=== PATIENT | female | born 1935 | race Caucasian/White ===

== ENCOUNTER 2018-06-21 11:10 | Outpatient (CLI) | payer MEDICARE ==
--- NOTE | 2018-06-21 13:29 | RAD ---
LUMBAR SPINE 3 VIEWS: Date: 06/21/18 HISTORY: Lumbago. Back pain. FINDINGS: There are degenerative changes in the lumbar spine. No fracture, subluxation, or bony destruction is identified. IMPRESSION: Lumbar spondylosis. POS: [facility]
== END 2018-06-21 11:11 | disposition home or self-care (01) ==
LOC: BICRAD 11:10
PROVIDERS: ATTEND Anesthesiology
DX: M54.5 Low back pain (principal); M47.816 Spondylosis without myelopathy or radiculopathy, lumbar region
CPT/HCPCS: 72100

== ENCOUNTER 2018-10-17 10:59 | Outpatient (CLI) | payer MEDICARE ==
--- NOTE | 2018-10-17 11:56 | RAD ---
LEFT KNEE 4 VIEWS: Date: 10/17/18 HISTORY: Knee pain. FINDINGS: Joint spaces are preserved. There are mild degenerative changes with spurring from the tibial spines and patella. No fracture or acute abnormality identified. No significant joint effusion. IMPRESSION: No acute findings. POS: [facility]
== END 2018-10-17 11:00 | disposition home or self-care (01) ==
LOC: SCSRAD 10:59
DX: M25.562 Pain in left knee (principal)

== ENCOUNTER 2018-12-26 10:35 | Observation (INO) | payer MEDICARE ==
--- NOTE | 2018-12-26 10:53 | CT ---
CT Brain WO Con History: Seeing spots. Comparison: None. 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 No acute hemorrhage or infarct. No midli ne shift or mass effect. Jugular size and extra-axial CSF spaces are normal for age. Globes are intact. No retrobulbar hematoma. Calvarium is intact. Paranasal sinuses and mastoids are clear. Impression: Old right cerebellar infarction. No acute intracranial abnormality.
[2018-12-26 11:08] LABS: #Basophils 0.1 thou/uL (0.0-0.2); #Eosinphils 0.1 thou/uL (0.0-0.7); #Lymphocytes 1.4 thou/uL (1.20-3.40); #Monocytes 0.4 thou/uL (0.11-0.59); #Neutrophils 4.3 thou/uL (1.40-6.50); %Eosinophils 1.4 % (0.0-10.0); %Lymphocytes 22.5 % (21.0-51.0); %Monocytes 5.9 % (0.0-10.0); %Neutrophils 69.2 % (42.0-75.0); Hemoglobin 14.4 g/dL (12.0-16.0); Mean Corpuscular HGB CONC 32.5 g/dL (32.0-36.0); Mean Corpuscular Hemoglobin 31.9 pg (27.0-31.0); Mean Platelet Volume 9.7 fL (7.4-10.4); Platelet Count 131 thou/uL (130-400); RBC Distribution Width 11.6 % (11.5-14.5); Red Blood Cell (RBC) Count 4.53 mill/uL (4.20-5.40); White Blood Cell (WBC) Count 6.3 thou/uL (4.8-10.8)
[2018-12-26 11:33] LABS: Bilirubin Negative (Negative); Blood, Urine Negative (Negative); Clarity Clear (Clear); Glucose, Urine (Dipstick) Normal (Negative); Leukocyte Negative Leu/uL (Negative); Nitrite Negative (Negative); Protein, Urine (Dipstick) Negative (Neg-Trace); Urobilinogen Normal mg/dL (Less than 2)
[2018-12-26 11:33] LABS: ALT (SGPT) 18 U/L (8-55); AST (SGOT) 31 U/L (5-34); Albumin 4.1 g/dL (3.4-4.8); Alkaline Phosphatase 79 U/L (40-150); Anion Gap 11 mmol/L (10-20); BUN (Urea Nitrogen) 26 mg/dL (9.8-20.1); Bilirubin, Total 0.5 mg/dL (0.2-1.2); Calc. Creatinine Clearance 0 mL/min (70-130); Calcium 10.6 mg/dL (7.8-10.44); Carbon Dioxide 31 mmol/L (23-31); Chloride 100 mmol/L (98-107); Estimated GFR-MDRD 38; Globulin 3.4 g/dL (2.4-3.5); Glucose 147 mg/dL (83-110); Protein, Total 7.5 g/dL (6.0-8.3); Sodium 138 mmol/L (136-145)
[2018-12-26] MEDS ORDERED: Aspirin Chewable 81 MG TAB ONE (12:43)
[2018-12-26] MEDS ORDERED: Acetaminophen 325 MG TAB PO PRN (14:51)
[2018-12-26] MEDS ORDERED: Dextrose 50% Abboject 50 ML SYRINGE SLOW IVP PRN (14:51)
[2018-12-26] MEDS ORDERED: Dextrose 5% in Water 1,000 ML IV PRN (14:51)
[2018-12-26] MEDS ORDERED: Ondansetron PF 4 MG/2 ML Vial IVP PRN (14:51)
[2018-12-26] MEDS ORDERED: HumaLOG 300 UNITS/3 ML VIAL SC PRN (14:51)
[2018-12-26] MEDS ORDERED: Ondansetron ODT 4 MG TAB PO PRN (14:51)
--- NOTE | 2018-12-26 15:33 | MRI ---
MRI OF BRAIN WITHOUT CONTRAST: 12/26/18 HISTORY: CVA, TIA. Blurred vision with spots which have resolved. FINDINGS: Correlation is made with the CT scan obtained earlier today. No restricted diffusion is seen. There is an old lacunar infarction in the right cerebellar hemispher e. No evidence of acute infarct, hemorrhage, midline shift, or abnormal extra-axial fluid collections are seen. There are changes of mild chronic ischemic small vessel ischemic disease in the periventri cular and subcortical white matter. IMPRESSION: No evidence of acute intracranial process. POS: [facility]
[2018-12-26 15:52] VITALS: BMI 37.7
--- NOTE | 2018-12-26 17:03 | ULT ---
US Carotid Doppler STANDARD History: TIA Comparison: None. Findings: Real-time grayscale and color and spectral analysis of the extracranial carotid and vertebr al arteries was performed. Moderate atherosclerotic plaque of both carotid bulbs. Antegrade flow both vertebral arteries. No noris vated peak systolic velocities within the internal carotid arteries. Impression: No hemodynamically significant stenosis.
[2018-12-26] MEDS ORDERED: HYDROcodone/Acetaminophen 7.5/325 mg Tablet PO PRN (19:02)
[2018-12-26] MEDS ORDERED: hydrALAZINE 20 MG/ML VIAL SLOW IVP PRN ×2 (19:04→22:00)
[2018-12-26] MEDS ORDERED: Famotidine 20 MG TAB PO SCH (21:00)
[2018-12-26] MEDS: Gabapentin 300 MG CAP PO SCH (21:14)
[2018-12-26] MEDS: Morphine ER 15 MG TAB PO SCH (21:14)
[2018-12-26] MEDS: Carbidopa/Levodopa 10-100 mg Tablet PO SCH (21:14)
[2018-12-26] MEDS: HumaLOG 300 UNITS/3 ML VIAL SC PRN (21:19)
--- NOTE | 2018-12-26 21:28 | HP ---
PRIMARY CARE PHYSICIAN: Dr. Winters. CHIEF COMPLAINT: Bilateral blurred vision and dizziness. HISTORY OF PRESENT ILLNESS: Ms. Goodwin is an 83-year-old female, with a past medical history of glaucoma, Parkinson disease, chronic back pain, gout, history of diabetes type 2, and hypertension, who had presented to [facility] earlier today with her family members after she experienced bilateral vision changes earlier this morning along with some dizziness that started around the same time. She states that she was seen at a local urgent care that had noticed a slight facial droop along with some right-sided weakness, which she states that her symptoms resolved after about an hour. She had denied any fever, chills, any headache, chest pain, palpitations, shortness of breath, abdominal pain, nausea, vomiting or any change in stool. She is currently not having any further visual changes or dizziness at this time. She was given a full dose aspirin in the ED, and her CT of her head revealed an old right cerebellar infarction and no acute intracranial abnormalities; however, the patient had denied knowing any history of stroke in the past. She sees Dr. Patricio for her Parkinson's and she had denied any further changes. REVIEW OF SYSTEMS: All other systems reviewed and found to be negative unless mentioned in the HPI. PAST MEDICAL HISTORY: Hypertension, glaucoma, Parkinson's, chronic back pain, gout, diabetes mellitus type 2. PAST SURGICAL HISTORY: A and P colporrhaphy with cystocele and rectocele, spinal fusion, facial biopsy, bladder biopsy, arm biopsy, cataract surgery, appendectomy, cholecystectomy, and tonsillectomy. PSYCHIATRIC HISTORY: None. SOCIAL HISTORY: The patient denies alcohol, tobacco, or illicit drug use. KNOWN ALLERGIES: Penicillins and sulfa. CURRENT HOME MEDICATIONS: Include. 1. Aspirin 10 mg oral daily. 2. Cinnamon 4 times daily. 3. Lasix 20 mg daily as needed for fluid retention. 4. Gabapentin 300 mg oral daily. 5. Lantus 56 units at bedtime. 6. NovoLog 12 units t.i.d. 7. NovoLog insulin sliding scale. 8. Timolol eyedrops. PHYSICAL EXAMINATION: VITAL SIGNS: BP 136/79, pulse 61, respiration 19, temp 98.7, O2 saturation 96% on room air. GENERAL: The patient is awake, alert, and oriented x3. She is currently lying comfortably in bed and in no acute distress. HEENT: Atraumatic, normocephalic. Pupils are round and reactive to light. Extraocular muscles intact. Moist mucous membranes noted. NECK: Soft, supple. Trachea midline. CARDIOVASCULAR: Positive S1 and S2. Regular rate and rhythm. No murmur auscultated. RESPIRATORY: Clear to auscultation bilaterally. No wheezes, rales, or rhonchi. ABDOMEN: Soft, nontender. Bowel sounds present. EXTREMITIES: Moves all extremities equal. Strength 5+ bilaterally upper and lower extremities. Pedal and radial pulses 2+ bilaterally. No calf tenderness. No edema noted. NEUROLOGIC: Cranial nerves 2 through 12 grossly intact. No focal deficits noted. Speech intact and normal. Gait not assessed. SKIN: Warm, dry, and intact. No ulceration. No bruising noted. PSYCHIATRIC: Good mood and affect. LABORATORY DATA: WBC 6.3, RBC 4.53, hemoglobin 14.4, hematocrit 44.4, platelet 131. Sodium 138, potassium 4.0, anion gap 11, BUN 26, creatinine 1.32, estimated GFR 38, glucose 147. Urinalysis unremarkable. DIAGNOSTIC IMAGING: CT of brain without contrast revealed an old right cerebellar infarction with no acute intracranial abnormality demonstrated. ASSESSMENT/PLAN: 1. Possible transient ischemic attack. We will obtain an MRI of the brain without contrast. Carotid Doppler and echocardiogram for further evaluation. We will also place consult for Dr. Patricio. The patient was given aspirin down in the ED and we will maintain this along with her home statin. 2. History of hypertension. Continue home regimen. 3. Diabetes mellitus type 2. Continue home regimen including Lantus 56 units at nighttime along with insulin sliding scale with frequent Accu-Cheks. 4. History of Parkinson's. Continue home regimen and as above we will place consult for Neurology, Dr. Patricio. 5. History of glaucoma. Continue home eye drops. 6. Deep venous thrombosis and gastrointestinal prophylaxis. 7. Code status, full code. 8. Surrogate decision maker is her daughter, Rosalee. DISPOSITION: Pending further workup and clinical findings. Job ID: [id number]
[2018-12-26] MEDS ORDERED: rOPINIRole HCl 0.25 MG TAB PO SCH (22:30)
[2018-12-27] MEDS: Levothyroxine Sodium 100 MCG TAB PO SCH (05:12)
[2018-12-27] MEDS: Morphine ER 15 MG TAB PO SCH ×3 (05:39→21:27)
[2018-12-27 06:32] LABS: #Eosinphils 0.1 thou/uL (0.0-0.7); #Lymphocytes 1.7 thou/uL (1.20-3.40); #Monocytes 0.5 thou/uL (0.11-0.59); #Neutrophils 3.6 thou/uL (1.40-6.50); %Basophils 0.6 % (0.0-1.0); %Eosinophils 2.3 % (0.0-10.0); %Monocytes 8.5 % (0.0-10.0); %Neutrophils 60.5 % (42.0-75.0); Hemoglobin 13.5 g/dL (12.0-16.0); Mean Corpuscular HGB CONC 33.2 g/dL (32.0-36.0); Mean Corpuscular Hemoglobin 32.5 pg (27.0-31.0); Mean Platelet Volume 9.8 fL (7.4-10.4); Platelet Count 116 thou/uL (130-400); RBC Distribution Width 11.6 % (11.5-14.5); Red Blood Cell (RBC) Count 4.16 mill/uL (4.20-5.40); White Blood Cell (WBC) Count 5.9 thou/uL (4.8-10.8)
[2018-12-27 06:46] LABS: Anion Gap 12 mmol/L (10-20); BUN (Urea Nitrogen) 31 mg/dL (9.8-20.1); Calc. Creatinine Clearance 51 mL/min (70-130); Calcium 9.5 mg/dL (7.8-10.44); Carbon Dioxide 25 mmol/L (23-31); Cardiac Risk 2.2 (Less than 4.5); Chloride 104 mmol/L (98-107); Cholesterol 100 mg/dl (< 200 Desired); Estimated GFR-MDRD 39; Glucose 140 mg/dL (83-110); HDL Cholesterol 46 mg/dL (>60 Neg Risk); LDL Cholesterol, Calculated 35 mg/dL; Potassium 3.8 mmol/L (3.5-5.1); Sodium 137 mmol/L (136-145); Triglycerides 96 mg/dL (Less than 150)
[2018-12-27] MEDS: Calcitriol 0.25 MCG CAP PO SCH (08:47)
[2018-12-27] MEDS: Losartan 25 MG TAB PO SCH (08:47)
[2018-12-27] MEDS: Carbidopa/Levodopa 10-100 mg Tablet PO SCH ×4 (08:47→21:27)
[2018-12-27] MEDS: Atorvastatin Calcium 10 MG TAB PO SCH (08:47)
[2018-12-27] MEDS: Febuxostat 40 MG TAB PO SCH (08:48)
[2018-12-27] MEDS ORDERED: rOPINIRole HCl 0.25 MG TAB PO SCH ×2 (09:00→21:00)
[2018-12-27] MEDS: Aspirin 325 MG TAB PO SCH (09:48)
[2018-12-27] MEDS: HumaLOG 300 UNITS/3 ML VIAL SC PRN ×2 (12:10→17:39)
[2018-12-27] MEDS ORDERED: Famotidine 20 MG TAB PO SCH (21:00)
[2018-12-27] MEDS: Gabapentin 300 MG CAP PO SCH (21:28)
--- NOTE | 2018-12-27 23:43 | CON ---
DATE OF CONSULTATION: 12/27/2018 HISTORY OF PRESENT ILLNESS: Ms. Goodwin is a patient of mine for management of Parkinson's. She has a distant history of migraine headaches. She had an episode where she had some central vision blurring, this lasted about 30 minutes. There was no associated headache, nausea, vomiting, vertigo, lateralized weakness, or numbness. She has never had anything like this in the past. She came in for evaluation. Her MRI of the brain showed an old right cerebellar infarct. The carotid ultrasound was clear. Cholesterol ratio is 2.2. Her vital signs have been stable. She has been afebrile. She has not had any further problems. Her echocardiogram is pending. PAST MEDICAL HISTORY: Parkinson's, diabetes, hypertension, low back pain, obesity. FAMILY HISTORY: Noncontributory. ALLERGIES: SULFA, PENICILLIN. PHYSICAL EXAMINATION: GENERAL: She is alert and appropriate. Her speech is fluent and clear. Her exam is nonfocal. She has a rest tremor involving the right hand and foot. Ms. Goodwin's episode is not typical of either occipital lobe or optic ischemia. I suspect that it could have been migraine aura. I have advised her to take a baby aspirin daily. I will follow up with her in the office. Job ID: [id number] MTDD
[2018-12-28 05:29] LABS: #Eosinphils 0.2 thou/uL (0.0-0.7); #Lymphocytes 1.7 thou/uL (1.20-3.40); #Monocytes 0.5 thou/uL (0.11-0.59); %Basophils 0.6 % (0.0-1.0); %Eosinophils 3.1 % (0.0-10.0); %Lymphocytes 25.9 % (21.0-51.0); %Neutrophils 62.4 % (42.0-75.0); Hemoglobin 13.8 g/dL (12.0-16.0); Mean Corpuscular HGB CONC 32.2 g/dL (32.0-36.0); Mean Corpuscular Hemoglobin 31.7 pg (27.0-31.0); Mean Corpuscular Volume 98.4 fL (78.0-98.0); Mean Platelet Volume 9.9 fL (7.4-10.4); Platelet Count 122 thou/uL (130-400); RBC Distribution Width 11.5 % (11.5-14.5); Red Blood Cell (RBC) Count 4.35 mill/uL (4.20-5.40); White Blood Cell (WBC) Count 6.5 thou/uL (4.8-10.8)
[2018-12-28 05:49] LABS: Anion Gap 13 mmol/L (10-20); BUN (Urea Nitrogen) 31 mg/dL (9.8-20.1); Calc. Creatinine Clearance 59 mL/min (70-130); Calcium 9.3 mg/dL (7.8-10.44); Carbon Dioxide 26 mmol/L (23-31); Chloride 103 mmol/L (98-107); Estimated GFR-MDRD 46; Glucose 161 mg/dL (83-110); Potassium 4.1 mmol/L (3.5-5.1); Sodium 138 mmol/L (136-145)
[2018-12-28] MEDS: Morphine ER 15 MG TAB PO SCH ×2 (06:28→14:06)
[2018-12-28] MEDS: Levothyroxine Sodium 100 MCG TAB PO SCH (06:29)
[2018-12-28] MEDS: Calcitriol 0.25 MCG CAP PO SCH (08:53)
[2018-12-28] MEDS: Atorvastatin Calcium 10 MG TAB PO SCH (08:53)
[2018-12-28] MEDS: Aspirin 325 MG TAB PO SCH (08:53)
[2018-12-28] MEDS: Losartan 25 MG TAB PO SCH (08:54)
[2018-12-28] MEDS: Febuxostat 40 MG TAB PO SCH (08:54)
[2018-12-28] MEDS: Carbidopa/Levodopa 10-100 mg Tablet PO SCH ×2 (08:54→14:06)
[2018-12-28] MEDS ORDERED: Aspirin 81 mg Enteric Coated Tablet PO SCH (10:45)
[2018-12-28] MEDS: HumaLOG 300 UNITS/3 ML VIAL SC PRN (11:39)
[2018-12-28 11:52] VITALS: BP 132/63; TEMP 97.9
--- NOTE | 2018-12-29 02:24 | DIS ---
DATE OF ADMISSION: 12/26/2018 DATE OF DISCHARGE: 12/28/2018 DISCHARGE DIAGNOSES: 1. Transient ischemic attack. 2. Hypertension. 3. Parkinson's, chronic back pain, gout, and diabetes. HOSPITAL COURSE: The patient is a very pleasant 83-year-old female, who initially presented to the hospital with complaints of bilateral blurry vision and dizziness. She initially had a CT brain, which indicated old cerebellar infarct. The patient was not aware of this. She was notified. She also had a brain MRI, which indicated no evidence of acute intracranial processes except for the right cerebellar hemispheric infarct. She did have carotid studies and echocardiogram. Her carotid Dopplers were normal and her EF was 55% to 60%, with just diastolic dysfunction and some mild mitral and aortic and tricuspid regurgitation. The patient denies any bilateral blurry vision. She is back to her baseline. She will be discharged home. She does not take home aspirin. I will start her on aspirin 81 mg daily. She has seen Neurology, who recommended aspirin. Continue the statin. HOME MEDICATIONS: 1. Aspirin 81 mg daily. 2. Morphine q.8 hours p.r.n. 3. Insulin Lantus units daily. 4. Atorvastatin 10 mg daily. 5. Levothyroxine 100 mcg daily. 6. Losartan 100 mg daily. 7. Gabapentin 300 mg at bedtime. 8. Lasix 20 mg daily. 9. Calcitriol 0.25 mcg p.o. daily. PHYSICAL EXAMINATION: VITAL SIGNS: Temperature 97.9, 69, 16, 94% on room air, and 132/63. GENERAL: She is awake, alert, and oriented x3. Does not appear in distress. CV: S1, S2 present. No murmurs, rubs, or gallops. ABDOMEN: Soft, nontender. Bowel sounds are present x2. EXTREMITIES: No edema. Again, she will be discharged home. She will follow up with her primary. Job ID: [id number]
[2018-12-29] MEDS ORDERED: Aspirin 81 mg Enteric Coated Tablet PO SCH (09:00)
[2018-12-29] MEDS ORDERED: Aspirin 325 MG TAB PO SCH (09:00)
--- NOTE | 2018-12-29 12:01 | EKG ---
Test Reason : Blood Pressure : / mmHG Vent. Rate : 068 BPM Atrial Rate : 068 BPM P-R Int : 000 ms QRS Dur : 082 ms QT Int : 380 ms P-R-T Axes : 000 -34 025 degrees QTc Int : 404 ms Normal sinus rhythm Left axis deviation Abnormal ECG Confirmed by MARA PRICE, TWILA ([id number]), loan expeditor MOSES GREENE ([id number]) on 12/29/2018 12:01:05 PM Referred By: Confirmed By:TWILA TERRY MD
== END 2018-12-28 14:47 | disposition home or self-care (01) ==
LOC: ERS 10:35 → ERHOLD 12:33 → 2SE 15:42
PROVIDERS: ADMIT Internal Medicine; ATTEND Internal Medicine
DX: G45.9 Transient cerebral ischemic attack, unspecified (principal); I10 Essential (primary) hypertension; G20 Parkinson's disease; G89.29 Other chronic pain; M10.9 Gout, unspecified; M06.9 Rheumatoid arthritis, unspecified; E11.9 Type 2 diabetes mellitus without complications; G43.909 Migraine, unspecified, not intractable, without status migrainosus; Z86.73 Personal history of transient ischemic attack (TIA), and cerebral infarction without residual deficits; Z79.4 Long term (current) use of insulin; Z79.891 Long term (current) use of opiate analgesic; Z79.899 Other long term (current) drug therapy; Z88.0 Allergy status to penicillin; Z88.2 Allergy status to sulfonamides
CPT/HCPCS: 70450; 70551; 80048 ×2; 80061; 81003; 82962 ×3; 85025 ×2; 93005; 93306; 93880; 97139 ×2; 99285; G0378 ×4; 36415; 36416; 80053; 84443

== ENCOUNTER 2019-04-05 06:43 | Outpatient (CLI) | payer MEDICARE ==
--- NOTE | 2019-04-05 07:44 | ULT ---
ULTRASOUND ABDOMEN COMPLETE: DATE: 04/05/2019 HISTORY: Left lower quadrant abdominal pain in 84-year-old female. FINDINGS: Liver:Normal echogenicity. Gallbladder:Surgically absent Common duct:10 mm. Spleen:No splenomegaly. Pancreas:Nonspecific sonographic appearance. Kidneys:No hydronephrosis. Abdominal aorta:No aneurysm. Inferior vena cava:Normal or visualized. IMPRESSION: 1. For left lower quadrant abdominal pain, CT of abdomen and pelvis with contrast is recommended. 2. Status post cholecystectomy. 3. Dilated common duct. This is presumably due to loss of reservoir effect due to status post cholecy stectomy.
--- NOTE | 2019-04-05 07:49 | ULT ---
Ultrasound pelvis: HISTORY: 84-year-old female with left lower quadrant abdominal/pelvic pain TECHNIQUE: Transabdominal transducer used to evaluate intrapelvic contents. Patient declined transvaginal ultras ound. FINDINGS: Cursory images of the urinary bladder demonstrate no gross abnormality. Uterus is absent surgically. Ovaries are not visualized. IMPRESSION: Featureless pelvis status post hysterectomy.
== END 2019-04-05 06:44 | disposition home or self-care (01) ==
LOC: BICULT 06:43
PROVIDERS: ATTEND Family Medicine
DX: R10.32 Left lower quadrant pain (principal); K83.8 Other specified diseases of biliary tract; Z90.710 Acquired absence of both cervix and uterus; Z90.49 Acquired absence of other specified parts of digestive tract
CPT/HCPCS: 36415; 76857; 80053; 80061; 83036; 84443; 85025; 93975

== ENCOUNTER 2019-09-05 08:29 | Day surgery (SDC) | payer MEDICARE ==
[2019-09-04 15:03] VITALS: BMI 38.4
[2019-09-05 09:02] LABS: PTT 34.3 sec (22.9-36.1); Prothrombin Time 12.9 sec (12.0-14.7)
[2019-09-05 09:04] LABS: #Basophils 0.1 thou/uL (0.0-0.2); #Eosinphils 0.3 thou/uL (0.0-0.7); #Lymphocytes 1.6 thou/uL (1.20-3.40); #Monocytes 0.4 thou/uL (0.11-0.59); #Neutrophils 4.6 thou/uL (1.40-6.50); %Basophils 0.8 % (0.0-1.0); %Eosinophils 4.1 % (0.0-10.0); %Monocytes 6.2 % (0.0-10.0); %Neutrophils 66.1 % (42.0-75.0); Hemoglobin 13.9 g/dL (12.0-16.0); Mean Corpuscular Hemoglobin 31.3 pg (27.0-31.0); Mean Platelet Volume 10.5 fL (7.4-10.4); Platelet Count 110 thou/uL (130-400); RBC Distribution Width 11.7 % (11.5-14.5); Red Blood Cell (RBC) Count 4.45 mill/uL (4.20-5.40); White Blood Cell (WBC) Count 6.9 thou/uL (4.8-10.8)
[2019-09-05] MEDS ORDERED: Midazolam HCl 2 mg/2 ml Vial ONE (10:38)
[2019-09-05] MEDS ORDERED: Fentanyl 100 MCG/2 ML VIAL ONE (10:38)
[2019-09-05] MEDS ORDERED: Sodium Bicarbonate 2.5 MEQ/5 ML VIAL ONE (10:38)
[2019-09-05 12:23] VITALS: BP 117/85; TEMP 97.4
--- NOTE | 2019-09-05 15:52 | CT ---
CT-guided suprapubic catheter placement Conscious sedation: At least 50 minutes spent with the patient for conscious sedation. HISTORY: Neurogenic bladder. FINDINGS: After explaining the procedure and answering all questions, limited CT imaging of the pelvi s was performed. Approximately 70 cc additional sterile saline was instilled into the bladder via the indwelling catheter. Additional fluid was unable to be administered due to hyperdense material se en to be impacted within the internal portions of the Robbins catheter. Sterile technique, buffered local anesthesia, CT guidance, conscious sedation, and an anterior suprap ubic approach were used to carefully advance a 12 Danish suprapubic catheter into the urinary bladder with trocar technique. Position was confirmed. Clear urine was drained. Catheter was secured with buffered local anesthesia and 0 silk suture and left draining to gravity. Patient tolerated procedure well and was returned to the holding area in good condition for further m onitoring. IMPRESSION : Technically successful CT-guided suprapubic catheter placement. 12 Danish catheter was placed due to the inability to well distend urinary bladder and the depth of t he bladder from the skin surface, so that initially placing a larger catheter was not felt to be safe. The previously indwelling Robbins catheter contained hyperdense debris that obstructed the lumen within fluid administration was attempted.
== END 2019-09-05 13:20 | disposition home or self-care (01) ==
LOC: SPEC 08:29
PROVIDERS: ATTEND Urology
PROC: 0T9B30Z Drainage of Bladder with Drainage Device, Percutaneous Approach (ICD-10-PCS; principal; 2019-09-05)
DX: N31.9 Neuromuscular dysfunction of bladder, unspecified (principal); R33.9 Retention of urine, unspecified; N39.41 Urge incontinence; I13.0 Hypertensive heart and chronic kidney disease with heart failure and stage 1 through stage 4 chronic kidney disease, or unspecified chronic kidney disease; E11.22 Type 2 diabetes mellitus with diabetic chronic kidney disease; N18.3 Chronic kidney disease, stage 3 (moderate); I50.9 Heart failure, unspecified; G25.81 Restless legs syndrome; G20 Parkinson's disease; M79.7 Fibromyalgia; E66.01 Morbid (severe) obesity due to excess calories; Z68.38 Body mass index [BMI] 38.0-38.9, adult; Z87.440 Personal history of urinary (tract) infections; Z79.4 Long term (current) use of insulin; Z79.82 Long term (current) use of aspirin; Z79.891 Long term (current) use of opiate analgesic; Z79.899 Other long term (current) drug therapy; Z88.0 Allergy status to penicillin; Z88.2 Allergy status to sulfonamides
CPT/HCPCS: 51102; 77002; 85025; 85610; 85730; C2627; 36415; J2250; J3010

== ENCOUNTER 2019-12-27 07:30 | Outpatient (CLI) | payer MEDICARE ==
--- NOTE | 2019-12-27 11:23 | MRI ---
MRI OF THE THORACIC SPINE WITHOUT CONTRAST: INDICATION: An 84-year-old female with chronic thoracic back pain. The patient has had no prior history of thora cic spinal surgery but does report a history of prior cervical spinal fusion. There is no history of trauma. TECHNIQUE: T2 weighted sagittals, T1 weighted sagittals, T2 STIR sagittal, axial T2 and T1 images were obtained of the thoracic spine without contrast. Here are no radiographic comparisons. Comparisons are made of the lumbar spine radiograph from a study dated June 21, 2018, from [facility]. A T2 weighted number of count series was obtained for thoracic spinal level numbering. FINDINGS: There is very mild rightward curvature of the thoracic spine centered at the T7-T8 vertebral level. There is a large T2 hyperintense, T1 hypointense lesion involving the left aspect of the T12 vertebra l body extending into the left pedicle of the T12 vertebra measuring 4.3 x 2.7 cm with internal verti leigha oriented trabeculation most consistent with a large bony hemangioma. There is a 1 x 1 cm oval T2 hyperintense, peripheral T1 hyperintense, centrally T1 hypointense lesion within the right postero lateral aspect of the T7 vertebral body with no surrounding cortical breakthrough or marrow edema. T he lesion does demonstrate slightly more pronounced fatty signal on the axial T1 weighted images jesse g its medial border on image 48 of series 10. There are additional areas of stippled low T1 and T2 s ignal intensity foci within the medial margin of the lesion. No acute fracture is evident. At T1-T2, there is no appreciable central canal or neural foraminal narrowing. There is mild facet j oint degenerative change. There is mild facet osteoarthrosis bilaterally. There is a small right perineural cyst in the neural foramina at T2-T3. There is no appreciable central canal or neural foraminal narrowing. At T3-T4, there is no appreciable central canal or neural foraminal narrowing. At T4-T5, there is a small left perineural cyst within the neural foramina, but no appreciable centra l canal or neural foraminal narrowing. At T5-T6, there is a right perineural cyst in the neural foramina, but no appreciable central canal o r neural foraminal narrowing. At T6-T7, there is no appreciable central canal or neural foraminal narrowing. At T7-T8, there is no appreciable central canal or neural foraminal narrowing. There is mild facet j oint degenerative change. At T8-T9, there is no appreciable central canal or neural foraminal narrowing. There is mild facet j oint degenerative change. At T9-T10, there is no appreciable central canal or neural foraminal narrowing. There is a mild size perineural cyst within the right neural foramina. There is facet hypertrophy bilaterally. At T10-T11, there is mild facet hypertrophy, but no appreciable central canal or neural foraminal filemon rowing. At T11-T12, there is no appreciable central or neural foraminal narrowing. At T12-L1, there is no appreciable central canal or neural foraminal narrowing. There are small marginal osteophytes affecting all major thoracic vertebral levels. There are minima l multilevel broad-based disk bulges that are most evident on the sagittal images. Visualized paravertebral and prevertebral soft tissues appear within normal limits. IMPRESSION: 1. Mild multilevel thoracic spondylosis without evidence of significant central canal or neural fora marisela narrowing. 2. The spinal cord demonstrated a normal caliber and signal intensity. 3. Prominent T12 bony hemangioma. Suspected slightly atypical hemangioma within the right posterola teral aspect of the T7 vertebral body. There are areas of peripheral internal fat signal intensity a long the margin of the lesion. There is no evidence of aggressive surrounding changes to the bone ne ar this lesion. If clinically indicated, a CT examination may be helpful to evaluate the internal ar chitecture of this lesion confirming it as a hemangioma. 4. No acute fracture demonstrated. POS: [facility]
== END 2019-12-27 07:31 | disposition home or self-care (01) ==
LOC: SCSMRI 07:30
DX: M54.6 Pain in thoracic spine (principal); M47.814 Spondylosis without myelopathy or radiculopathy, thoracic region; D18.09 Hemangioma of other sites
CPT/HCPCS: 72146

== ENCOUNTER 2020-03-17 07:35 | Outpatient (CLI) | payer MEDICARE ==
--- NOTE | 2020-03-17 09:53 | MRI ---
MRI LUMBAR SPINE WITHOUT CONTRAST: INDICATION: An 85-year-old female with a history of back pain. COMPARISON: Lumbar spinal radiographs dated 06/21/2018 from [facility] in [place]. FINDINGS: There is a benign hemangioma within T12. There is heterogeneous marrow signal intensity likely relat ed to patchy areas of red and yellow marrow which is within normal limits. Small T2 hyperintensity i s seen involving the superior pole of the left kidney likely reflecting a tiny cyst measuring approxi mately 6 mm. No lymphadenopathy or free fluid is evident. No acute fracture is evident. At L5-S1, there is mild facet joint degenerative change and a broad-based bulge, but no appreciable c entral canal or neural foraminal narrowing. At L4-5, there is a broad-based bulge with facet hypertrophy and some mild loss of disk space height inducing mild neural foraminal narrowing. At L3-4, there is a broad-based bulge with ligamentum flavum hypertrophy and facet hypertrophy induci ng mild central canal narrowing with mild bilateral neural foraminal narrowing. At L2-3, there is a broad-based bulge with facet hypertrophy inducing minimal to mild central canal narrowing and mild bilateral neural foraminal narrowing. At L1-2, there is a broad-based bulge with facet hypertrophy inducing minimal to mild central canal n arrowing without appreciable neural foraminal narrowing. T12-L1, there is no appreciable central canal or neural foraminal narrowing. IMPRESSION: 1. Mild lumbar spondylosis with mild central canal narrowing and mild bilateral neural foraminal filemon rowing at L3-4. 2. Minimal to mild central canal narrowing at L1-2 and L2-3. 3. Mild neural foraminal narrowing at L4-5. POS: [facility]
== END 2020-03-17 07:36 | disposition home or self-care (01) ==
LOC: TBSIIMAG 07:35
DX: M96.1 Postlaminectomy syndrome, not elsewhere classified (principal); M54.5 Low back pain; M47.816 Spondylosis without myelopathy or radiculopathy, lumbar region; M48.061 Spinal stenosis, lumbar region without neurogenic claudication
CPT/HCPCS: 72146; 72148

== ENCOUNTER 2020-05-01 11:18 | Outpatient (CLI) | payer MEDICARE ==
--- NOTE | 2020-05-01 12:06 | MMO ---
Bilateral MAMMO Bilat Screen [facility]DI+ASHTYN. CLINICAL HISTORY: Patient is 85 years old and is seen for screening. The patient has no family history of breast cancer. The patient has no personal history of cancer. The patient has a history of left Excisional Biopsy - benign. VIEWS: The views performed were: bilateral craniocaudal with tomosynthesis and bilateral mediolateral oblique with tomosynthesis. FILMS COMPARED: The present examination has been compared to prior imaging studies performed at [facility] on 04/04/2019, and at [facility] on 10/27/2011 and 01/03/2013. This study has been interpreted with the assistance of computer-aided detection. MAMMOGRAM FINDINGS: There are scattered fibroglandular densities. There are benign appearing calcifications seen in both breasts. There are no suspicious masses, suspicious calcifications, or new areas of architectural distortion. IMPRESSION: THERE IS NO MAMMOGRAPHIC EVIDENCE OF MALIGNANCY. A ROUTINE FOLLOW-UP MAMMOGRAM IN 1 YEAR IS RECOMMENDED. THE RESULTS OF THIS EXAM WERE SENT TO THE PATIENT. ACR BI-RADS Category 2 - Benign finding MAMMOGRAPHY NOTE: 1. A negative mammogram report should not delay a biopsy if a dominant of clinically suspicious mass is present. 2. Approximately 10% to 15% of breast cancers are not detected by mammography. 3. Adenosis and dense breasts may obscure an underlying neoplasm. Reported by: ULICES WALL MD Electonically Signed: [id number]
== END 2020-05-01 11:19 | disposition home or self-care (01) ==
LOC: BICMAMMO 11:18
PROVIDERS: ATTEND Family Medicine
DX: Z12.31 Encounter for screening mammogram for malignant neoplasm of breast (principal)
CPT/HCPCS: 77063; 77067

== ENCOUNTER 2020-06-26 13:05 | Outpatient (CLI) | payer MEDICARE | END 2020-06-26 13:06 | disposition home or self-care (01) | LOC: BICRAD 13:05 | PROVIDERS: ATTEND Family Medicine | DX: R06.02 Shortness of breath (principal); I10 Essential (primary) hypertension; Z79.4 Long term (current) use of insulin | CPT/HCPCS: 36415; 71046; 80053; 80061; 83036; 85025 ==

== ENCOUNTER 2020-08-14 10:24 | Outpatient (CLI) | payer MEDICARE | END 2020-08-14 10:25 | disposition home or self-care (01) | LOC: BICMRI 10:24 | PROVIDERS: ATTEND Family Medicine | DX: R41.3 Other amnesia (principal); G93.89 Other specified disorders of brain | CPT/HCPCS: 70551 ==

== ENCOUNTER 2020-11-23 10:01 | Outpatient (CLI) | payer MEDICARE ==
[~2020-11-23 10:01] MED LIST: Iopamidol 370 76% 100 ML VIAL ONE
== END 2020-11-23 10:02 | disposition home or self-care (01) ==
LOC: BICCT 10:01
PROVIDERS: ATTEND Family Medicine
DX: E27.40 Unspecified adrenocortical insufficiency (principal); E27.8 Other specified disorders of adrenal gland; K80.50 Calculus of bile duct without cholangitis or cholecystitis without obstruction; N32.89 Other specified disorders of bladder; N21.0 Calculus in bladder
CPT/HCPCS: 74178; Q9967

== ENCOUNTER 2020-12-15 09:16 | Inpatient (IN) | payer MEDICARE ==
[2020-12-15 09:53] LABS: Bilirubin Moderate (Negative); Blood, Urine Moderate (Negative); Glucose, Urine (Dipstick) 100 mg/dL (Negative); Ketone, Urine Trace mg/dL (Negative); Leukocyte Large (Negative); Nitrite Negative (Negative); Protein, Urine (Dipstick) > or equal to 300 mg/dL (Neg-Trace)
[2020-12-15 10:00] LABS: Clarity Clear (Clear); Specific Gravity, Urine 1.004 (1.002-1.036); pH, Urine 7.5 (5.0-9.0)
[2020-12-15 10:03] LABS: Bacteria/HPF 4+ HPF (None Seen); Triple Phosphate Crystal 1+ HPF (None Seen); WBC/HPF 21-50 HPF (0-3); Yeast-Budding 1+ HPF (None Seen)
[2020-12-15] MEDS ORDERED: Fentanyl 100 MCG/2 ML VIAL ONE ×3 (10:27→19:36)
[2020-12-15 11:11] LABS: #Lymphocytes 0.7 thou/uL (1.20-3.40); #Monocytes 0.1 thou/uL (0.11-0.59); #Neutrophils 12.8 thou/uL (1.40-6.50); %Eosinophils 0.1 % (0.0-10.0); %Lymphocytes 4.9 % (21.0-51.0); Hemoglobin 14.7 g/dL (12.0-16.0); Mean Corpuscular HGB CONC 32.6 g/dL (32.0-36.0); Mean Corpuscular Hemoglobin 33.1 pg (27.0-31.0); Mean Platelet Volume 10.7 fL (7.4-10.4); Platelet Count 103 thou/uL (130-400); Red Blood Cell (RBC) Count 4.44 mill/uL (4.20-5.40); White Blood Cell (WBC) Count 13.7 thou/uL (4.8-10.8)
[2020-12-15 11:39] LABS: AST (SGOT) 775 U/L (5-34); Albumin 3.5 g/dL (3.4-4.8); Alkaline Phosphatase 267 U/L (40-110); Anion Gap 18 mmol/L (10-20); BUN (Urea Nitrogen) 21 mg/dL (9.8-20.1); Bilirubin, Total 2.8 mg/dL (0.2-1.2); Calc. Creatinine Clearance 0 mL/min (70-130); Calcium 9.5 mg/dL (7.8-10.44); Carbon Dioxide 23 mmol/L (23-31); Chloride 103 mmol/L (98-107); Globulin 3.6 g/dL (2.4-3.5); Glucose 238 mg/dL (83-110); Potassium 3.9 mmol/L (3.5-5.1); Protein, Total 7.1 g/dL (5.8-8.1); Sodium 140 mmol/L (136-145)
[2020-12-15 11:47] LABS: CKMB 1.5 ng/mL (0-6.6)
[2020-12-15 12:27] LABS: ALT (SGPT) 667 U/L (8-55); Lipase 7 U/L (8-78)
[2020-12-15] MEDS ORDERED: cefTRIAXone\\ROCEPHIN 2 GM VIAL ONE (13:09)
[2020-12-15] MEDS ORDERED: VANCOMYCIN 2 GRAM/400 ML BAG 2 GM in Premix Bag 1 BAG IVPB SCH (13:15)
[2020-12-15] MEDS ORDERED: Famotidine/PF 20 mg/2ml Vial ONE (13:54)
[2020-12-15] MEDS ORDERED: Iothalamate Meglumine 60% 50 ML VIAL FS ONE (14:09)
[2020-12-15] MEDS ORDERED: Indomethacin 50 MG SUPP ONE (14:13)
[2020-12-15] MEDS ORDERED: SUGAMMADEX SODIUM 200 MG/2 ML VIAL ONE (14:19)
[2020-12-15 14:22] LABS: Lactic Acid 2.7 mmol/L (0.5-2.2)
[2020-12-15 15:00] LABS: SARS-CoV-2 NAA Rapid Test Not Detected (NotDetected)
[2020-12-15] MEDS ORDERED: Dextrose 5 % And 0.9 % NaCl 1,000 ML IV SCH (15:00)
[2020-12-15] MEDS ORDERED: Indomethacin 50 MG SUPP PR SCH (15:00)
[2020-12-15] MEDS ORDERED: Hydrocortisone Sod Succ/PF 100 mg/2 ml Vial IVP SCH (15:00)
[2020-12-15] MEDS ORDERED: Succinylcholine 200 MG/10 ml SYRINGE FS ONE (15:22)
[2020-12-15] MEDS ORDERED: Rocuronium Bromide 10 MG/ML (10ML VIAL) ONE (15:22)
[2020-12-15] MEDS ORDERED: PROPOFOL 200 MG/20 ML VIAL ONE (15:22)
[2020-12-15] MEDS ORDERED: PHENYLEPHRINE-NS 100 MCG/ML 10 ML SYRINGE ONE (15:22)
[2020-12-15] MEDS ORDERED: Ondansetron PF 4 MG/2 ML Vial ONE (15:22)
[2020-12-15] MEDS ORDERED: Lidocaine 2% PF 5 ML VIAL ONE (15:22)
[2020-12-15] MEDS ORDERED: Metoclopramide HCl 10 MG/2 ML VIAL ONE (15:22)
[2020-12-15] MEDS ORDERED: Iothalamate Meglumine 60% 30 ML VIAL FS ONE (17:18)
[2020-12-15] MEDS ORDERED: Ondansetron HCl/PF 4 MG/2 ML Vial IVP PRN (18:26)
[2020-12-15] MEDS ORDERED: hydrALAZINE 20 MG/ML VIAL ONE ×2 (19:20→22:21)
[2020-12-15] MEDS: hydrALAZINE 20 MG/ML VIAL SLOW IVP PRN ×2 (19:25→19:40)
[2020-12-15] MEDS ORDERED: Hydrocortisone Sod Succ/PF 100 mg/2 ml Vial ONE (19:55)
[2020-12-15] MEDS: Sodium Chloride 0.9% 1,000 ML IV SCH (20:06)
[2020-12-15] MEDS ORDERED: Dextrose 5% in Water 1,000 ML IV PRN (20:26)
[2020-12-15] MEDS ORDERED: Dextrose 50% Abboject 50 ML SYRINGE SLOW IVP PRN (20:26)
[2020-12-15] MEDS ORDERED: Losartan 25 MG TAB PO SCH (20:30)
[2020-12-15 22:03] LABS: Lactic Acid 2.9 mmol/L (0.5-2.2)
[2020-12-15] MEDS ORDERED: hydrALAZINE 20 MG/ML VIAL SLOW IVP PRN (22:56)
[2020-12-16] MEDS ORDERED: Ondansetron PF 4 MG/2 ML Vial IVP PRN (00:48)
[2020-12-16] MEDS ORDERED: Ondansetron ODT 4 MG TAB PO PRN (00:52)
[2020-12-16] MEDS: Morphine 4 MG/ML VIAL SLOW IVP PRN ×3 (01:01→20:36)
[2020-12-16] MEDS: Sodium Chloride 0.9% 1,000 ML IV SCH ×2 (01:07→09:22)
[2020-12-16 05:12] VITALS: BMI 34.0
[2020-12-16 05:33] LABS: #Lymphocytes 0.8 thou/uL (1.20-3.40); #Monocytes 0.3 thou/uL (0.11-0.59); #Neutrophils 11.7 thou/uL (1.40-6.50); %Lymphocytes 6.2 % (21.0-51.0); %Neutrophils 91.8 % (42.0-75.0); Hemoglobin 14.1 g/dL (12.0-16.0); Mean Corpuscular HGB CONC 32.4 g/dL (32.0-36.0); Mean Platelet Volume 10.4 fL (7.4-10.4); Platelet Count 106 thou/uL (130-400); RBC Distribution Width 12.1 % (11.5-14.5); Red Blood Cell (RBC) Count 4.27 mill/uL (4.20-5.40); White Blood Cell (WBC) Count 12.8 thou/uL (4.8-10.8)
[2020-12-16 05:54] LABS: ALT (SGPT) 477 U/L (8-55); AST (SGOT) 255 U/L (5-34); Albumin 3.1 g/dL (3.4-4.8); Alkaline Phosphatase 214 U/L (40-110); Anion Gap 12 mmol/L (10-20); BUN (Urea Nitrogen) 21 mg/dL (9.8-20.1); Bilirubin, Total 3.4 mg/dL (0.2-1.2); Calc. Creatinine Clearance 55 mL/min (70-130); Calcium 8.8 mg/dL (7.8-10.44); Carbon Dioxide 24 mmol/L (23-31); Chloride 106 mmol/L (98-107); Globulin 3.2 g/dL (2.4-3.5); Glucose 263 mg/dL (83-110); Lipase 216 U/L (8-78); Potassium 3.4 mmol/L (3.5-5.1); Protein, Total 6.3 g/dL (5.8-8.1); Sodium 139 mmol/L (136-145)
[2020-12-16] MEDS ORDERED: Potassium Chloride 20 MEQ TAB PO SCH (07:00)
[2020-12-16] MEDS ORDERED: Electrolyte Replacement Protocol 1 EACH FS SCH (07:00)
[2020-12-16 08:18] LABS: Lactic Acid 1.7 mmol/L (0.5-2.2)
[2020-12-16 08:23] LABS: Magnesium 1.3 mg/dL (1.6-2.6)
[2020-12-16] MEDS: Losartan 25 MG TAB PO SCH (09:15)
[2020-12-16] MEDS ORDERED: Magnesium Sulfate 4 GM in Sodium Chloride 0.9% 250 ML 250 ML IVPB SCH (09:15)
[2020-12-16] MEDS: Ursodiol 300 MG CAP PO SCH ×3 (09:16→18:15)
[2020-12-16] MEDS: Saccharomyces boulardii 250 MG CAP PO SCH (09:16)
[2020-12-16] MEDS: Famotidine/PF 20 mg/2ml Vial SLOW IVP SCH (09:16)
[2020-12-16] MEDS: HumaLOG 300 UNITS/3 ML VIAL SC PRN ×3 (12:44→22:39)
[2020-12-16] MEDS ORDERED: Furosemide 20 MG TAB PO PRN (16:08)
[2020-12-16] MEDS: rOPINIRole HCl 0.25 MG TAB PO SCH (18:15)
[2020-12-16] MEDS: Gabapentin 300 MG CAP PO SCH (20:34)
[2020-12-16] MEDS: Hydrocortisone 10 mg Tablet PO SCH (20:34)
[2020-12-16] MEDS: Carbidopa/Levodopa 25-100 mg Tablet PO SCH (20:34)
[2020-12-16] MEDS: Zonisamide 25 MG CAP PO SCH (21:31)
[2020-12-17] MEDS: Morphine 4 MG/ML VIAL SLOW IVP PRN ×4 (02:30→16:46)
[2020-12-17] MEDS: Sodium Chloride 0.9% 1,000 ML IV SCH ×2 (03:21→15:19)
[2020-12-17] MEDS: Levothyroxine Sodium 100 MCG TAB PO SCH (05:54)
[2020-12-17 06:25] LABS: #Lymphocytes 0.8 thou/uL (1.20-3.40); #Monocytes 0.5 thou/uL (0.11-0.59); #Neutrophils 7.8 thou/uL (1.40-6.50); %Eosinophils 0.3 % (0.0-10.0); %Lymphocytes 8.9 % (21.0-51.0); %Monocytes 4.9 % (0.0-10.0); %Neutrophils 85.8 % (42.0-75.0); Hemoglobin 13.2 g/dL (12.0-16.0); Mean Corpuscular HGB CONC 31.9 g/dL (32.0-36.0); Mean Corpuscular Hemoglobin 32.8 pg (27.0-31.0); Mean Platelet Volume 10.3 fL (7.4-10.4); Platelet Count 82 thou/uL (130-400); RBC Distribution Width 12.3 % (11.5-14.5); Red Blood Cell (RBC) Count 4.02 mill/uL (4.20-5.40)
[2020-12-17 06:48] LABS: ALT (SGPT) 113 U/L (8-55); AST (SGOT) 113 U/L (5-34); Albumin 2.9 g/dL (3.4-4.8); Alkaline Phosphatase 187 U/L (40-110); Anion Gap 10 mmol/L (10-20); BUN (Urea Nitrogen) 20 mg/dL (9.8-20.1); Bilirubin, Total 2.5 mg/dL (0.2-1.2); Calc. Creatinine Clearance 65 mL/min (70-130); Calcium 8.3 mg/dL (7.8-10.44); Carbon Dioxide 24 mmol/L (23-31); Chloride 109 mmol/L (98-107); Globulin 3.2 g/dL (2.4-3.5); Glucose 199 mg/dL (83-110); Potassium 3.7 mmol/L (3.5-5.1); Protein, Total 6.1 g/dL (5.8-8.1); Sodium 139 mmol/L (136-145)
[2020-12-17] MEDS: HumaLOG 300 UNITS/3 ML VIAL SC PRN ×4 (07:16→20:39)
[2020-12-17] MEDS: Gabapentin 300 MG CAP PO SCH ×2 (09:09→20:41)
[2020-12-17] MEDS: Carvedilol 3.125 MG TAB PO SCH ×2 (09:11→20:41)
[2020-12-17] MEDS: Carbidopa/Levodopa 25-100 mg Tablet PO SCH ×3 (09:11→20:42)
[2020-12-17] MEDS: Saccharomyces boulardii 250 MG CAP PO SCH (09:11)
[2020-12-17] MEDS: Ursodiol 300 MG CAP PO SCH ×3 (09:13→15:55)
[2020-12-17] MEDS: Losartan 25 MG TAB PO SCH (09:13)
[2020-12-17] MEDS: Aspirin 81 mg Enteric Coated Tablet PO SCH (09:14)
[2020-12-17] MEDS: Famotidine/PF 20 mg/2ml Vial SLOW IVP SCH (09:14)
[2020-12-17] MEDS: Zonisamide 25 MG CAP PO SCH ×2 (09:14→20:43)
[2020-12-17] MEDS: Allopurinol 100 MG TAB PO SCH (09:14)
[2020-12-17] MEDS: Hydrocortisone 10 mg Tablet PO SCH ×2 (09:14→20:42)
[2020-12-17] MEDS: Morphine ER 15 MG TAB PO SCH ×2 (15:55→20:41)
[2020-12-17] MEDS: hydrALAZINE 20 MG/ML VIAL SLOW IVP PRN (15:56)
[2020-12-17] MEDS: rOPINIRole HCl 0.25 MG TAB PO SCH (16:00)
[2020-12-17] MEDS ORDERED: Meropenem 1 GM in Sodium Chloride 0.9% 100 ML IVPB SCH (17:00)
[2020-12-17] MEDS ORDERED: MEROPENEM 1 GM/50 ML 1 GM in Premix Bag 1 BAG IVPB SCH (17:15)
[2020-12-17] MEDS: HYDROcodone/Acetaminophen 7.5/325 mg Tablet PO PRN (18:31)
[2020-12-17] MEDS: DorzolamidE/Timolol 2%/0.5% Ophth Soln 10 ml Bottle EA EYE SCH (20:39)
[2020-12-17] MEDS: Latanoprost 0.005% Ophth Soln 2.5 ml Bottle EA EYE SCH (20:39)
[2020-12-18] MEDS: HYDROcodone/Acetaminophen 7.5/325 mg Tablet PO PRN ×3 (01:14→23:47)
[2020-12-18] MEDS: Sodium Chloride 0.9% 1,000 ML IV SCH ×4 (01:14→23:47)
[2020-12-18] MEDS: MEROPENEM 1 GM/50 ML 1 GM in Premix Bag 1 BAG IVPB SCH ×3 (01:15→16:15)
[2020-12-18] MEDS: Morphine 4 MG/ML VIAL SLOW IVP PRN (03:54)
[2020-12-18] MEDS: Levothyroxine Sodium 100 MCG TAB PO SCH (05:26)
[2020-12-18] MEDS: hydrALAZINE 20 MG/ML VIAL SLOW IVP PRN (05:26)
[2020-12-18] MEDS: HumaLOG 300 UNITS/3 ML VIAL SC PRN ×4 (06:12→20:09)
[2020-12-18] MEDS: Ursodiol 300 MG CAP PO SCH ×3 (08:46→16:15)
[2020-12-18] MEDS: Morphine ER 15 MG TAB PO SCH ×3 (08:47→19:55)
[2020-12-18] MEDS: Saccharomyces boulardii 250 MG CAP PO SCH (08:50)
[2020-12-18] MEDS: Losartan 25 MG TAB PO SCH (08:50)
[2020-12-18] MEDS: Aspirin 81 mg Enteric Coated Tablet PO SCH (08:50)
[2020-12-18] MEDS: Gabapentin 300 MG CAP PO SCH ×2 (08:50→19:59)
[2020-12-18] MEDS: Carvedilol 3.125 MG TAB PO SCH ×2 (08:50→19:59)
[2020-12-18] MEDS: DorzolamidE/Timolol 2%/0.5% Ophth Soln 10 ml Bottle EA EYE SCH ×2 (08:50→19:56)
[2020-12-18] MEDS: Hydrocortisone 10 mg Tablet PO SCH ×2 (08:50→19:58)
[2020-12-18] MEDS: Allopurinol 100 MG TAB PO SCH (08:50)
[2020-12-18] MEDS: Carbidopa/Levodopa 25-100 mg Tablet PO SCH ×3 (08:50→19:59)
[2020-12-18] MEDS: Famotidine/PF 20 mg/2ml Vial SLOW IVP SCH (08:51)
[2020-12-18] MEDS: Zonisamide 25 MG CAP PO SCH ×2 (08:51→20:00)
[2020-12-18] MEDS: rOPINIRole HCl 0.25 MG TAB PO SCH (16:15)
[2020-12-18] MEDS: Latanoprost 0.005% Ophth Soln 2.5 ml Bottle EA EYE SCH (19:57)
[2020-12-19] MEDS: MEROPENEM 1 GM/50 ML 1 GM in Premix Bag 1 BAG IVPB SCH ×3 (00:22→16:15)
[2020-12-19] MEDS: HumaLOG 300 UNITS/3 ML VIAL SC PRN ×4 (05:36→20:49)
[2020-12-19] MEDS: Levothyroxine Sodium 100 MCG TAB PO SCH (05:36)
[2020-12-19] MEDS: Saccharomyces boulardii 250 MG CAP PO SCH (08:08)
[2020-12-19] MEDS: hydrALAZINE 20 MG/ML VIAL SLOW IVP PRN (08:08)
[2020-12-19] MEDS: Famotidine/PF 20 mg/2ml Vial SLOW IVP SCH (08:08)
[2020-12-19] MEDS: DorzolamidE/Timolol 2%/0.5% Ophth Soln 10 ml Bottle EA EYE SCH ×2 (08:08→19:49)
[2020-12-19] MEDS: Aspirin 81 mg Enteric Coated Tablet PO SCH (08:09)
[2020-12-19] MEDS: Carvedilol 3.125 MG TAB PO SCH ×2 (08:09→19:51)
[2020-12-19] MEDS: Hydrocortisone 10 mg Tablet PO SCH ×2 (08:09→19:51)
[2020-12-19] MEDS: Gabapentin 300 MG CAP PO SCH ×2 (08:09→19:51)
[2020-12-19] MEDS: Losartan 25 MG TAB PO SCH (08:09)
[2020-12-19] MEDS: Carbidopa/Levodopa 25-100 mg Tablet PO SCH ×3 (08:09→19:59)
[2020-12-19] MEDS: Allopurinol 100 MG TAB PO SCH (08:09)
[2020-12-19] MEDS: Ursodiol 300 MG CAP PO SCH ×3 (08:10→16:10)
[2020-12-19] MEDS: Zonisamide 25 MG CAP PO SCH ×2 (08:10→20:00)
[2020-12-19] MEDS: Morphine ER 15 MG TAB PO SCH ×3 (08:11→19:58)
[2020-12-19] MEDS ORDERED: Polyethylene Glycol 3350 17 GM Packet PO PRN (11:52)
[2020-12-19] MEDS: Nystatin Powder 15 GM BOT TOP PRN (16:08)
[2020-12-19] MEDS: Sodium Chloride 0.9% 1,000 ML IV SCH (16:10)
[2020-12-19] MEDS: rOPINIRole HCl 0.25 MG TAB PO SCH (16:10)
[2020-12-19] MEDS: Latanoprost 0.005% Ophth Soln 2.5 ml Bottle EA EYE SCH (19:50)
[2020-12-20] MEDS: HYDROcodone/Acetaminophen 7.5/325 mg Tablet PO PRN (00:32)
[2020-12-20] MEDS: MEROPENEM 1 GM/50 ML 1 GM in Premix Bag 1 BAG IVPB SCH ×3 (00:36→17:00)
[2020-12-20] MEDS: hydrALAZINE 20 MG/ML VIAL SLOW IVP PRN (01:06)
[2020-12-20] MEDS: Sodium Chloride 0.9% 1,000 ML IV SCH ×3 (01:59→18:14)
[2020-12-20] MEDS: HumaLOG 300 UNITS/3 ML VIAL SC PRN ×4 (06:00→22:29)
[2020-12-20] MEDS: Levothyroxine Sodium 100 MCG TAB PO SCH (06:00)
[2020-12-20 06:07] LABS: #Eosinphils 0.5 thou/uL (0.0-0.7); #Lymphocytes 1.1 thou/uL (1.20-3.40); #Monocytes 0.4 thou/uL (0.11-0.59); #Neutrophils 4.2 thou/uL (1.40-6.50); %Basophils 0.6 % (0.0-1.0); %Eosinophils 7.8 % (0.0-10.0); %Lymphocytes 17.9 % (21.0-51.0); %Monocytes 6.7 % (0.0-10.0); Hemoglobin 13.2 g/dL (12.0-16.0); Mean Corpuscular HGB CONC 32.4 g/dL (32.0-36.0); Mean Corpuscular Hemoglobin 33.4 pg (27.0-31.0); Mean Platelet Volume 11.3 fL (7.4-10.4); Platelet Count 102 thou/uL (130-400); RBC Distribution Width 12.6 % (11.5-14.5); Red Blood Cell (RBC) Count 3.95 mill/uL (4.20-5.40); White Blood Cell (WBC) Count 6.2 thou/uL (4.8-10.8)
[2020-12-20 06:11] LABS: Anion Gap 11 mmol/L (10-20); BUN (Urea Nitrogen) 24 mg/dL (9.8-20.1); Calc. Creatinine Clearance 69 mL/min (70-130); Calcium 7.9 mg/dL (7.8-10.44); Carbon Dioxide 23 mmol/L (23-31); Chloride 110 mmol/L (98-107); Glucose 225 mg/dL (83-110); Potassium 3.9 mmol/L (3.5-5.1); Sodium 140 mmol/L (136-145)
[2020-12-20] MEDS: Hydrocortisone 10 mg Tablet PO SCH ×2 (08:18→22:28)
[2020-12-20] MEDS: Ursodiol 300 MG CAP PO SCH ×3 (08:18→16:58)
[2020-12-20] MEDS: Gabapentin 300 MG CAP PO SCH ×2 (08:18→22:27)
[2020-12-20] MEDS: Aspirin 81 mg Enteric Coated Tablet PO SCH (08:18)
[2020-12-20] MEDS: Carvedilol 3.125 MG TAB PO SCH ×2 (08:19→22:26)
[2020-12-20] MEDS: Losartan 25 MG TAB PO SCH (08:19)
[2020-12-20] MEDS: Allopurinol 100 MG TAB PO SCH (08:19)
[2020-12-20] MEDS: Morphine ER 15 MG TAB PO SCH ×3 (08:19→22:31)
[2020-12-20] MEDS: Carbidopa/Levodopa 25-100 mg Tablet PO SCH ×3 (08:19→22:26)
[2020-12-20] MEDS: Saccharomyces boulardii 250 MG CAP PO SCH (08:19)
[2020-12-20] MEDS: DorzolamidE/Timolol 2%/0.5% Ophth Soln 10 ml Bottle EA EYE SCH ×2 (08:21→22:26)
[2020-12-20] MEDS: Zonisamide 25 MG CAP PO SCH ×2 (08:21→22:34)
[2020-12-20] MEDS: Famotidine/PF 20 mg/2ml Vial SLOW IVP SCH (08:22)
[2020-12-20 11:29] LABS: #Eosinphils 0.4 thou/uL (0.0-0.7); #Lymphocytes 0.9 thou/uL (1.20-3.40); #Monocytes 0.3 thou/uL (0.11-0.59); #Neutrophils 4.5 thou/uL (1.40-6.50); %Basophils 0.3 % (0.0-1.0); %Eosinophils 6.9 % (0.0-10.0); %Lymphocytes 15.2 % (21.0-51.0); %Neutrophils 72.7 % (42.0-75.0); Hemoglobin 14.2 g/dL (12.0-16.0); Mean Corpuscular HGB CONC 32.7 g/dL (32.0-36.0); Mean Corpuscular Hemoglobin 33.4 pg (27.0-31.0); Platelet Count 92 thou/uL (130-400); RBC Distribution Width 12.6 % (11.5-14.5); Red Blood Cell (RBC) Count 4.24 mill/uL (4.20-5.40); White Blood Cell (WBC) Count 6.2 thou/uL (4.8-10.8)
[2020-12-20] MEDS: rOPINIRole HCl 0.25 MG TAB PO SCH (16:58)
[2020-12-20] MEDS: Latanoprost 0.005% Ophth Soln 2.5 ml Bottle EA EYE SCH (22:27)
[2020-12-21] MEDS: HYDROcodone/Acetaminophen 7.5/325 mg Tablet PO PRN ×2 (00:29→11:20)
[2020-12-21] MEDS: MEROPENEM 1 GM/50 ML 1 GM in Premix Bag 1 BAG IVPB SCH ×3 (00:29→17:47)
[2020-12-21] MEDS: hydrALAZINE 20 MG/ML VIAL SLOW IVP PRN ×2 (00:30→11:15)
[2020-12-21] MEDS: Sodium Chloride 0.9% 1,000 ML IV SCH ×2 (00:41→15:19)
[2020-12-21] MEDS: Levothyroxine Sodium 100 MCG TAB PO SCH (06:16)
[2020-12-21] MEDS: HumaLOG 300 UNITS/3 ML VIAL SC PRN ×3 (06:17→17:49)
[2020-12-21 06:32] LABS: Anion Gap 9 mmol/L (10-20); BUN (Urea Nitrogen) 22 mg/dL (9.8-20.1); Calc. Creatinine Clearance 75 mL/min (70-130); Carbon Dioxide 25 mmol/L (23-31); Chloride 110 mmol/L (98-107); Glucose 246 mg/dL (83-110); Potassium 4.1 mmol/L (3.5-5.1); Sodium 140 mmol/L (136-145)
[2020-12-21] MEDS: Saccharomyces boulardii 250 MG CAP PO SCH (09:41)
[2020-12-21] MEDS: Morphine ER 15 MG TAB PO SCH ×3 (09:41→20:50)
[2020-12-21] MEDS: Losartan 25 MG TAB PO SCH (09:41)
[2020-12-21] MEDS: Carvedilol 3.125 MG TAB PO SCH (09:41)
[2020-12-21] MEDS: Allopurinol 100 MG TAB PO SCH (09:41)
[2020-12-21] MEDS: Carbidopa/Levodopa 25-100 mg Tablet PO SCH ×3 (09:41→20:50)
[2020-12-21] MEDS: Gabapentin 300 MG CAP PO SCH ×2 (09:41→20:49)
[2020-12-21] MEDS: Aspirin 81 mg Enteric Coated Tablet PO SCH (09:41)
[2020-12-21] MEDS: Hydrocortisone 10 mg Tablet PO SCH ×2 (09:41→20:44)
[2020-12-21] MEDS: Zonisamide 25 MG CAP PO SCH ×2 (09:43→20:48)
[2020-12-21] MEDS: Ursodiol 300 MG CAP PO SCH ×3 (09:44→17:47)
[2020-12-21] MEDS: DorzolamidE/Timolol 2%/0.5% Ophth Soln 10 ml Bottle EA EYE SCH ×2 (09:45→20:51)
[2020-12-21] MEDS: Famotidine/PF 20 mg/2ml Vial SLOW IVP SCH (09:54)
[2020-12-21 10:24] LABS: ALT (SGPT) 38 U/L (8-55); AST (SGOT) 25 U/L (5-34); Albumin 2.7 g/dL (3.4-4.8); Alkaline Phosphatase 161 U/L (40-110); Bilirubin, Total 0.7 mg/dL (0.2-1.2); Globulin 2.4 g/dL (2.4-3.5); Protein, Total 5.1 g/dL (5.8-8.1)
[2020-12-21] MEDS ORDERED: Dicyclomine 10 MG CAP PO PRN (17:15)
[2020-12-21] MEDS: rOPINIRole HCl 0.25 MG TAB PO SCH (17:47)
[2020-12-21] MEDS ORDERED: Fleet Enema 133 ML BOT PR SCH (18:15)
[2020-12-21] MEDS: Carvedilol 6.25 MG TAB PO SCH (20:51)
[2020-12-21] MEDS: Latanoprost 0.005% Ophth Soln 2.5 ml Bottle EA EYE SCH (20:52)
[2020-12-22] MEDS: Sodium Chloride 0.9% 1,000 ML IV SCH (00:11)
[2020-12-22] MEDS: MEROPENEM 1 GM/50 ML 1 GM in Premix Bag 1 BAG IVPB SCH ×2 (02:02→08:35)
[2020-12-22 05:18] LABS: #Basophils 0.1 thou/uL (0.0-0.2); #Eosinphils 0.5 thou/uL (0.0-0.7); #Lymphocytes 1.2 thou/uL (1.20-3.40); #Monocytes 0.4 thou/uL (0.11-0.59); #Neutrophils 4.9 thou/uL (1.40-6.50); %Basophils 0.8 % (0.0-1.0); %Eosinophils 7.4 % (0.0-10.0); %Lymphocytes 16.7 % (21.0-51.0); %Monocytes 6.2 % (0.0-10.0); %Neutrophils 68.8 % (42.0-75.0); Hemoglobin 12.9 g/dL (12.0-16.0); Mean Corpuscular HGB CONC 32.9 g/dL (32.0-36.0); Mean Corpuscular Hemoglobin 33.8 pg (27.0-31.0); Mean Platelet Volume 10.9 fL (7.4-10.4); Platelet Count 108 thou/uL (130-400); RBC Distribution Width 12.7 % (11.5-14.5); Red Blood Cell (RBC) Count 3.82 mill/uL (4.20-5.40); White Blood Cell (WBC) Count 7.1 thou/uL (4.8-10.8)
[2020-12-22 05:34] LABS: Anion Gap 12 mmol/L (10-20); BUN (Urea Nitrogen) 21 mg/dL (9.8-20.1); Calc. Creatinine Clearance 72 mL/min (70-130); Calcium 8.2 mg/dL (7.8-10.44); Carbon Dioxide 24 mmol/L (23-31); Chloride 107 mmol/L (98-107); Glucose 219 mg/dL (83-110); Potassium 4.5 mmol/L (3.5-5.1); Sodium 138 mmol/L (136-145)
[2020-12-22] MEDS: Levothyroxine Sodium 100 MCG TAB PO SCH (06:23)
[2020-12-22] MEDS: HumaLOG 300 UNITS/3 ML VIAL SC PRN ×4 (06:23→20:48)
[2020-12-22] MEDS: Hydrocortisone 10 mg Tablet PO SCH ×2 (08:18→20:48)
[2020-12-22] MEDS: Zonisamide 25 MG CAP PO SCH ×2 (08:18→20:50)
[2020-12-22] MEDS: Losartan 25 MG TAB PO SCH (08:18)
[2020-12-22] MEDS: DorzolamidE/Timolol 2%/0.5% Ophth Soln 10 ml Bottle EA EYE SCH ×2 (08:18→20:57)
[2020-12-22] MEDS: Aspirin 81 mg Enteric Coated Tablet PO SCH (08:19)
[2020-12-22] MEDS: Carbidopa/Levodopa 25-100 mg Tablet PO SCH ×3 (08:19→20:50)
[2020-12-22] MEDS: Morphine ER 15 MG TAB PO SCH ×3 (08:19→20:49)
[2020-12-22] MEDS: Saccharomyces boulardii 250 MG CAP PO SCH (08:19)
[2020-12-22] MEDS: Allopurinol 100 MG TAB PO SCH (08:19)
[2020-12-22] MEDS: Carvedilol 6.25 MG TAB PO SCH ×2 (08:21→20:50)
[2020-12-22] MEDS: Ursodiol 300 MG CAP PO SCH ×3 (08:26→16:55)
[2020-12-22] MEDS: Gabapentin 300 MG CAP PO SCH ×2 (08:29→20:49)
[2020-12-22] MEDS ORDERED: Non-Formulary Item 1 EACH (Losartan Potassium [Losartan Potassium] 100 MG Tablet) PO SCH (09:00)
[2020-12-22] MEDS: Famotidine/PF 20 mg/2ml Vial SLOW IVP SCH (11:12)
[2020-12-22] MEDS: Nystatin Powder 15 GM BOT TOP PRN (13:21)
[2020-12-22] MEDS: rOPINIRole HCl 0.25 MG TAB PO SCH (16:55)
[2020-12-22] MEDS: Latanoprost 0.005% Ophth Soln 2.5 ml Bottle EA EYE SCH (20:46)
[2020-12-22] MEDS: Ciprofloxacin 500 MG TAB PO SCH (20:48)
[2020-12-23 04:57] LABS: #Eosinphils 0.6 thou/uL (0.0-0.7); #Lymphocytes 1.5 thou/uL (1.20-3.40); #Monocytes 0.5 thou/uL (0.11-0.59); #Neutrophils 4.6 thou/uL (1.40-6.50); %Basophils 0.5 % (0.0-1.0); %Eosinophils 7.9 % (0.0-10.0); %Lymphocytes 20.8 % (21.0-51.0); %Monocytes 6.3 % (0.0-10.0); %Neutrophils 64.4 % (42.0-75.0); Hemoglobin 12.7 g/dL (12.0-16.0); Mean Corpuscular HGB CONC 31.7 g/dL (32.0-36.0); Mean Corpuscular Hemoglobin 32.5 pg (27.0-31.0); Mean Platelet Volume 10.7 fL (7.4-10.4); Platelet Count 115 thou/uL (130-400); RBC Distribution Width 12.7 % (11.5-14.5); Red Blood Cell (RBC) Count 3.91 mill/uL (4.20-5.40); White Blood Cell (WBC) Count 7.2 thou/uL (4.8-10.8)
[2020-12-23 05:33] LABS: Anion Gap 10 mmol/L (10-20); BUN (Urea Nitrogen) 22 mg/dL (9.8-20.1); Calc. Creatinine Clearance 73 mL/min (70-130); Calcium 8.2 mg/dL (7.8-10.44); Carbon Dioxide 25 mmol/L (23-31); Chloride 107 mmol/L (98-107); Glucose 257 mg/dL (83-110); Potassium 4.4 mmol/L (3.5-5.1); Sodium 138 mmol/L (136-145)
[2020-12-23] MEDS: Ciprofloxacin 500 MG TAB PO SCH (05:34)
[2020-12-23] MEDS: Levothyroxine Sodium 100 MCG TAB PO SCH (05:34)
[2020-12-23] MEDS: HumaLOG 300 UNITS/3 ML VIAL SC PRN ×3 (05:35→17:15)
[2020-12-23 08:28] LABS: SARS-CoV-2 PCR by NAA Not Detected (NotDetected)
[2020-12-23] MEDS: Carbidopa/Levodopa 25-100 mg Tablet PO SCH ×2 (08:40→15:20)
[2020-12-23] MEDS: Famotidine/PF 20 mg/2ml Vial SLOW IVP SCH (08:40)
[2020-12-23] MEDS: Ursodiol 300 MG CAP PO SCH ×3 (08:40→17:15)
[2020-12-23] MEDS: Losartan 25 MG TAB PO SCH (08:41)
[2020-12-23] MEDS: Zonisamide 25 MG CAP PO SCH (08:41)
[2020-12-23] MEDS: Allopurinol 100 MG TAB PO SCH (08:42)
[2020-12-23] MEDS: Morphine ER 15 MG TAB PO SCH ×2 (08:42→15:20)
[2020-12-23] MEDS: Aspirin 81 mg Enteric Coated Tablet PO SCH (08:42)
[2020-12-23] MEDS: Carvedilol 6.25 MG TAB PO SCH (08:42)
[2020-12-23] MEDS: Hydrocortisone 10 mg Tablet PO SCH (08:42)
[2020-12-23] MEDS: Saccharomyces boulardii 250 MG CAP PO SCH (08:42)
[2020-12-23] MEDS: Gabapentin 300 MG CAP PO SCH (08:42)
[2020-12-23] MEDS: DorzolamidE/Timolol 2%/0.5% Ophth Soln 10 ml Bottle EA EYE SCH (08:43)
[2020-12-23] MEDS: rOPINIRole HCl 0.25 MG TAB PO SCH (17:15)
[2020-12-23 20:55] VITALS: BP 137/69; TEMP 98
== END 2020-12-23 20:35 | DRG 871 ==
LOC: ERS 09:16 → SDC/OP 19:44 → 3SE 20:00 → OBSVTOIN 12-17 15:59 → 2NO 12-22 19:09
PROVIDERS: ADMIT Student in an Organized Health Care Education/Training Program; ATTEND Hospitalist
PROC: 0F798DZ Dilation of Common Bile Duct with Intraluminal Device, Via Natural or Artificial Opening Endoscopic (ICD-10-PCS; principal; 2020-12-15)
PROC: 0T2BX0Z Change Drainage Device in Bladder, External Approach (ICD-10-PCS; 2020-12-23)
DX: A41.51 Sepsis due to Escherichia coli [E. coli] (principal); I21.A1 Myocardial infarction type 2; K80.30 Calculus of bile duct with cholangitis, unspecified, without obstruction; T83.518A Infection and inflammatory reaction due to other urinary catheter, initial encounter; N39.0 Urinary tract infection, site not specified; I13.0 Hypertensive heart and chronic kidney disease with heart failure and stage 1 through stage 4 chronic kidney disease, or unspecified chronic kidney disease; I50.32 Chronic diastolic (congestive) heart failure; E27.40 Unspecified adrenocortical insufficiency; A41.52 Sepsis due to Pseudomonas; Z51.5 Encounter for palliative care; Z66 Do not resuscitate; D69.6 Thrombocytopenia, unspecified; Z20.822 Contact with and (suspected) exposure to COVID-19; G20 Parkinson's disease; H40.9 Unspecified glaucoma; M54.9 Dorsalgia, unspecified; G89.29 Other chronic pain; M10.9 Gout, unspecified; E11.22 Type 2 diabetes mellitus with diabetic chronic kidney disease; N18.30 Chronic kidney disease, stage 3 unspecified; E03.9 Hypothyroidism, unspecified; J45.909 Unspecified asthma, uncomplicated; E66.01 Morbid (severe) obesity due to excess calories; G25.81 Restless legs syndrome; I16.0 Hypertensive urgency; T83.018A Breakdown (mechanical) of other urinary catheter, initial encounter; K59.00 Constipation, unspecified; Y84.6 Urinary catheterization as the cause of abnormal reaction of the patient, or of later complication, without mention of misadventure at the time of the procedure; Z86.73 Personal history of transient ischemic attack (TIA), and cerebral infarction without residual deficits; Z88.0 Allergy status to penicillin; Z88.2 Allergy status to sulfonamides; Z79.4 Long term (current) use of insulin; Z79.82 Long term (current) use of aspirin; Z79.890 Hormone replacement therapy; Z79.899 Other long term (current) drug therapy; Z98.890 Other specified postprocedural states; Z98.1 Arthrodesis status; Z90.49 Acquired absence of other specified parts of digestive tract; Z79.51 Long term (current) use of inhaled steroids; Z68.33 Body mass index [BMI] 33.0-33.9, adult
CPT/HCPCS: 36415; 36416; 71045; 74330; 80048; 80053; 81003; 81015; 82553; 83605; 83690; 83735; 83880; 84484; 85025; 87040; 87077; 87086; 87186; 93005; 93010; 93306; 94760; 96365; 96367; 96375; 96376; C1769; G0378; J0360; J0696; J1610; J1720; J1815; J1956; J2001; J2185; J2270; J2405; J2704; J2765; J3010; J3370; J3475; J7050; Q9961; S0028; U0002; U0003; U0005

== ENCOUNTER 2021-05-05 12:25 | Outpatient (CLI) | payer MEDICARE | END 2021-05-05 12:26 | disposition home or self-care (01) | LOC: BICRAD 12:25 | PROVIDERS: ATTEND Nurse Practitioner Family | DX: M25.512 Pain in left shoulder (principal); M19.012 Primary osteoarthritis, left shoulder ==

== ENCOUNTER 2021-09-03 08:18 | Outpatient (CLI) | payer MEDICARE | END 2021-09-03 08:19 | disposition home or self-care (01) | LOC: NM 08:18 | PROVIDERS: ATTEND Physician Assistant Medical | DX: R14.0 Abdominal distension (gaseous) (principal); Z79.899 Other long term (current) drug therapy | CPT/HCPCS: 78264; A9541 ==

== ENCOUNTER 2021-10-04 08:24 | Outpatient (CLI) | payer MEDICARE ==
[2021-10-04 09:59] LABS: #Eosinphils 0.1 10x3/uL (0.0-0.5); #Monocytes 0.3 10x3/uL (0.0-1.1); #Neutrophils 3.2 10x3/uL (1.5-8.4); %Basophils 0.7 % (0.0-2.0); %Eosinophils 2.8 % (0.0-6.0); %Lymphocytes 21.9 % (18.0-47.0); %Monocytes 5.9 % (0.0-10.0); %Neutrophils 68.5 % (40.0-75.0); Hemoglobin 13.2 g/dL (12.0-15.5); Mean Corpuscular HGB CONC 32.2 g/dL (32.0-36.0); Mean Corpuscular Hemoglobin 32.9 pg (27.0-33.0); Mean Corpuscular Volume 102.2 fl (81.6-98.3); Mean Platelet Volume 13.1 fl (7.4-10.4); Platelet Count 120 10x3/uL (150-450); RBC Distribution Width 13.7 % (11.5-14.5); Red Blood Cell (RBC) Count 4.01 10x6/uL (3.90-5.03); White Blood Cell (WBC) Count 4.6 10x3/uL (3.5-10.5)
[2021-10-04 10:20] LABS: INR-International Normal Ratio 1.1; Prothrombin Time 12.2 sec (9.5-12.1)
[2021-10-04 10:24] LABS: Creatinine, Urine 84.22 mg/dL (47-110); Microalbumin/Creat Ratio 166.2 mg/g (Less than 30)
[2021-10-04 10:29] LABS: ALT (SGPT) 7 U/L (8-55); AST (SGOT) 35 U/L (5-34); Albumin 3.4 g/dL (3.4-4.8); Alkaline Phosphatase 128 U/L (40-110); Anion Gap 14 mmol/L (10-20); BUN (Urea Nitrogen) 20 mg/dL (9.8-20.1); Bilirubin, Total 0.4 mg/dL (0.2-1.2); Calc. Creatinine Clearance 0 mL/min (70-130); Calcium 9.1 mg/dL (7.8-10.44); Carbon Dioxide 25 mmol/L (23-31); Cardiac Risk 2.6 (Less than 4.5); Chloride 105 mmol/L (98-107); Cholesterol 90 mg/dl (< 200 Desired); Globulin 3.3 g/dL (2.4-3.5); Glucose 187 mg/dL (83-110); HDL Cholesterol 35 mg/dL (>60 Neg Risk); LDL Cholesterol, Calculated 37 mg/dL; Potassium 4.1 mmol/L (3.5-5.1); Protein, Total 6.7 g/dL (5.8-8.1); Sodium 140 mmol/L (136-145); Triglycerides 89 mg/dL (Less than 150)
[2021-10-04 10:50] LABS: Free T4 (Free Thyroxine) 1.17 ng/dL (0.70-1.48); Thyroid Stimulating Hormone 3.6 uIU/mL (0.35-4.94)
[2021-10-04 14:07] LABS: Hemoglobin A1c 6.9 % (4.0-6.0)
== END 2021-10-04 08:25 | disposition home or self-care (01) ==
LOC: LABBT 08:24
PROVIDERS: ATTEND Orthopaedic Surgery
DX: Z01.812 Encounter for preprocedural laboratory examination (principal); M75.122 Complete rotator cuff tear or rupture of left shoulder, not specified as traumatic; Z20.822 Contact with and (suspected) exposure to COVID-19
CPT/HCPCS: 80061; 82043; 82533; 83036; 84439; 85610; U0003; U0005; 80053; 84443; 85025

== ENCOUNTER 2021-10-04 08:45 | Inpatient (IN) | payer MEDICARE ==
[2021-10-07] MEDS ORDERED: Vancomycin (BATCH) 1.5 GRAM/300 ML BAG ONE (06:06)
[2021-10-07] MEDS ORDERED: Sodium Chloride 0.9% 100 ML ONE (06:07)
[2021-10-07] MEDS ORDERED: Tranexamic Acid 1,000 MG/10 ML VIAL ONE (06:07)
[2021-10-07] MEDS ORDERED: fentaNYL Citrate/PF 100 MCG/2 ML SYRINGE ONE (06:16)
[2021-10-07] MEDS ORDERED: SUGAMMADEX SODIUM 200 MG/2 ML VIAL ONE (06:17)
[2021-10-07] MEDS ORDERED: Midazolam HCl 2 mg/2 ml Vial ONE ×2 (06:31→06:50)
[2021-10-07] MEDS ORDERED: Fentanyl 100 MCG/2 ML VIAL ONE ×2 (06:50→10:48)
[2021-10-07] MEDS ORDERED: Ketamine 50 MG/ML (10ML VIAL) ONE (07:01)
[2021-10-07] MEDS ORDERED: Clindamycin/D5W 600 mg/50 ml Premix Bag ONE (07:15)
[2021-10-07] MEDS ORDERED: Levofloxacin 500 mg/D5W 100 ml Premix Bag ONE (07:15)
[2021-10-07] MEDS ORDERED: ePHEDrine 50 MG/ML VIAL ONE (07:40)
[2021-10-07] MEDS ORDERED: Ondansetron PF 4 MG/2 ML Vial ONE (07:40)
[2021-10-07] MEDS ORDERED: Succinylcholine 200 MG/10 ml SYRINGE FS ONE (07:40)
[2021-10-07] MEDS ORDERED: Ropivacaine 2% HCl/PF (20 MG/10 ML VIAL) ONE (07:40)
[2021-10-07] MEDS ORDERED: PROPOFOL 200 MG/20 ML VIAL ONE (07:40)
[2021-10-07] MEDS ORDERED: Rocuronium Bromide 10 MG/ML (10ML VIAL) ONE (07:40)
[2021-10-07] MEDS ORDERED: Lidocaine 1% PF 5 ML VIAL ONE (07:40)
[2021-10-07] MEDS ORDERED: Fentanyl 100 MCG/2 ML VIAL IV PRN (08:33)
[2021-10-07] MEDS ORDERED: Ondansetron PF 4 MG/2 ML Vial IVP PRN ×2 (08:45→10:29)
[2021-10-07] MEDS ORDERED: traMADol HCl 50 MG TAB PO PRN ×2 (08:45)
[2021-10-07] MEDS ORDERED: Ropivacaine 0.2% 550 ML 550 ML NERVE BLCK SCH (08:45)
[2021-10-07] MEDS ORDERED: Promethazine HCl 25 MG/ML VIAL IM PRN (08:45)
[2021-10-07] MEDS ORDERED: Zolpidem Tartrate 5 MG TAB PO PRN ×2 (08:45→10:29)
[2021-10-07] MEDS ORDERED: Ondansetron HCl/PF 4 MG/2 ML Vial IVP PRN (10:12)
[2021-10-07] MEDS ORDERED: Promethazine HCl 25 MG/ML VIAL IVPB PRN (10:12)
[2021-10-07] MEDS ORDERED: Ondansetron ODT 4 MG TAB PO PRN (10:29)
[2021-10-07] MEDS ORDERED: Milk Of Magnesia 30 ML UDCUP PO PRN (10:29)
[2021-10-07] MEDS ORDERED: Bisacodyl 10 MG SUPP PR PRN (10:29)
[2021-10-07] MEDS ORDERED: diphenhydrAMINE 50 MG CAP PO PRN (10:29)
[2021-10-07] MEDS ORDERED: Methocarbamol 500 MG TAB PO PRN (10:29)
[2021-10-07] MEDS ORDERED: Acetaminophen 325 MG TAB PO PRN (10:29)
[2021-10-07] MEDS ORDERED: Methocarbamol 1 GM/10 ML VIAL SLOW IVP PRN (10:29)
[2021-10-07] MEDS ORDERED: Furosemide 20 MG TAB PO PRN (12:51)
[2021-10-07] MEDS ORDERED: Non-Formulary Item 1 EACH (Mirabegron [Myrbetriq] 50 MG Tab.Er.24h) PO PRN (12:51)
[2021-10-07] MEDS: Clindamycin/D5W 900 MG in Premix Bag 1 BAG IVPB SCH ×2 (13:28→22:27)
[2021-10-07] MEDS: Famotidine 20 MG TAB PO SCH ×2 (14:51→21:44)
[2021-10-07] MEDS: Sodium Chloride 0.9% 1,000 ML IV SCH (14:51)
[2021-10-07] MEDS ORDERED: Carbidopa/Levodopa 25-100 mg Tablet PO SCH (15:00)
[2021-10-07] MEDS: Morphine ER 15 MG TAB PO SCH ×2 (15:25→21:43)
[2021-10-07] MEDS ORDERED: Non-Formulary Item 1 EACH (Insulin Aspart [Novolog Flexpen] 100 UNIT/ML Insuln.Pen) SC SCH (17:00)
[2021-10-07] MEDS ORDERED: Vancomycin HCl 1.5 GM in Sodium Chloride 0.9% 250 ML 300 ML IVPB SCH (18:00)
[2021-10-07] MEDS: Carbidopa/Levodopa 25-100 mg Tablet PO SCH ×2 (18:06→21:44)
[2021-10-07] MEDS: rOPINIRole HCl 0.25 MG TAB PO SCH (18:08)
[2021-10-07] MEDS: HumaLOG 300 UNITS/3 ML VIAL SC SCH (18:11)
[2021-10-07] MEDS ORDERED: DARIFENACIN HYDROBROMIDE 15 MG PO SCH (21:00)
[2021-10-07] MEDS ORDERED: Non-Formulary Item 1 EACH (Dorzolamide Hcl/Timolol Maleat [Dorzolamide Hcl/Timolol Maleat EA EYE SCH (21:00)
[2021-10-07] MEDS ORDERED: ZONISAMIDE 25 MG PO SCH (21:00)
[2021-10-07] MEDS: Trospium 20 MG TAB PO SCH (21:43)
[2021-10-07] MEDS: Zonisamide 100 MG CAP PO SCH (21:43)
[2021-10-07] MEDS: Gabapentin 300 MG CAP PO SCH (21:44)
[2021-10-07] MEDS: DorzolamidE/Timolol 2%/0.5% Ophth Soln 10 ml Bottle EA EYE SCH (22:28)
[2021-10-07] MEDS ORDERED: hydrALAZINE 20 MG/ML VIAL SLOW IVP PRN (23:11)
[2021-10-07] MEDS ORDERED: Dextrose 50% Abboject 50 ML SYRINGE SLOW IVP PRN (23:14)
[2021-10-07] MEDS ORDERED: Dextrose 5% in Water 1,000 ML IV PRN (23:17)
[2021-10-07] MEDS: HYDROcodone/Acetaminophen 7.5/325 mg Tablet PO PRN (23:53)
[2021-10-07] MEDS: HumaLOG 300 UNITS/3 ML VIAL SC PRN (23:55)
[2021-10-08] MEDS: Sodium Chloride 0.9% 1,000 ML IV SCH ×2 (04:42→05:20)
[2021-10-08] MEDS: HYDROcodone/Acetaminophen 7.5/325 mg Tablet PO PRN ×3 (05:19→18:12)
[2021-10-08] MEDS: Levothyroxine Sodium 100 MCG TAB PO SCH (05:19)
[2021-10-08] MEDS: HumaLOG 300 UNITS/3 ML VIAL SC PRN ×2 (05:24→21:09)
[2021-10-08 05:53] LABS: Hemoglobin A1c 6.8 % (4.0-6.0)
[2021-10-08 06:09] LABS: ALT (SGPT) 7 U/L (8-55); AST (SGOT) 23 U/L (5-34); Albumin 2.9 g/dL (3.4-4.8); Alkaline Phosphatase 103 U/L (40-110); Anion Gap 13 mmol/L (10-20); BUN (Urea Nitrogen) 23 mg/dL (9.8-20.1); Bilirubin, Total 0.4 mg/dL (0.2-1.2); Calc. Creatinine Clearance 50 mL/min (70-130); Calcium 8.3 mg/dL (7.8-10.44); Carbon Dioxide 22 mmol/L (23-31); Chloride 107 mmol/L (98-107); Estimated GFR 48; Globulin 3.3 g/dL (2.4-3.5); Glucose 223 mg/dL (83-110); Magnesium 1.5 mg/dL (1.6-2.6); Potassium 4.4 mmol/L (3.5-5.1); Protein, Total 6.2 g/dL (5.8-8.1); Sodium 138 mmol/L (136-145)
[2021-10-08 06:42] LABS: #Lymphocytes 1.3 thou/uL (1.20-3.40); #Monocytes 0.8 thou/uL (0.11-0.59); #Neutrophils 6.2 thou/uL (1.40-6.50); %Basophils 0.5 % (0.0-1.0); %Eosinophils 0.2 % (0.0-10.0); %Lymphocytes 15.2 % (21.0-51.0); %Neutrophils 74.2 % (42.0-75.0); Hemoglobin 12.4 g/dL (12.0-16.0); MDiff Complete? YES; Macrocytosis SLIGHT = 6-15 cells (100X) (0-5/hpf); Mean Corpuscular Hemoglobin 34.7 pg (27.0-31.0); Mean Platelet Volume 11.1 fL (7.4-10.4); Platelet Count 130 thou/uL (130-400); RBC Distribution Width 12.7 % (11.5-14.5); Red Blood Cell (RBC) Count 3.56 mill/uL (4.20-5.40); White Blood Cell (WBC) Count 8.3 thou/uL (4.8-10.8)
[2021-10-08] MEDS ORDERED: DARIFENACIN HYDROBROMIDE 7.5 MG PO SCH (09:00)
[2021-10-08] MEDS ORDERED: Non-Formulary Item 1 EACH (Losartan Potassium [Losartan Potassium] 100 MG Tablet) PO SCH (09:00)
[2021-10-08] MEDS: DorzolamidE/Timolol 2%/0.5% Ophth Soln 10 ml Bottle EA EYE SCH ×2 (09:04→21:07)
[2021-10-08] MEDS: Aspirin 81 mg Enteric Coated Tablet PO SCH (09:05)
[2021-10-08] MEDS: Carbidopa/Levodopa 25-100 mg Tablet PO SCH ×4 (09:05→21:07)
[2021-10-08] MEDS: Fish Oil 1,000 MG CAP PO SCH (09:05)
[2021-10-08] MEDS: Famotidine 20 MG TAB PO SCH (09:05)
[2021-10-08] MEDS: Trospium 20 MG TAB PO SCH ×2 (09:05→21:06)
[2021-10-08] MEDS: Morphine ER 15 MG TAB PO SCH ×3 (09:06→21:20)
[2021-10-08] MEDS: Losartan 25 MG TAB PO SCH (09:06)
[2021-10-08] MEDS: Gabapentin 300 MG CAP PO SCH ×2 (09:07→21:08)
[2021-10-08] MEDS: Allopurinol 100 MG TAB PO SCH (09:07)
[2021-10-08] MEDS: HumaLOG 300 UNITS/3 ML VIAL SC SCH ×3 (09:08→18:17)
[2021-10-08] MEDS: Latanoprost 0.005% Ophth Soln 2.5 ml Bottle EA EYE SCH (10:16)
[2021-10-08] MEDS: Heparin 5,000 UNITS/ML VIAL SC SCH ×3 (10:16→21:09)
[2021-10-08] MEDS: rOPINIRole HCl 0.25 MG TAB PO SCH (18:12)
[2021-10-08] MEDS: Zonisamide 100 MG CAP PO SCH (21:08)
[2021-10-09] MEDS: HYDROcodone/Acetaminophen 7.5/325 mg Tablet PO PRN ×2 (02:12→12:37)
[2021-10-09] MEDS: Sodium Chloride 0.9% 1,000 ML IV SCH ×2 (03:04→10:02)
[2021-10-09] MEDS: Levothyroxine Sodium 100 MCG TAB PO SCH (05:13)
[2021-10-09] MEDS: HumaLOG 300 UNITS/3 ML VIAL SC PRN ×2 (05:14→20:37)
[2021-10-09] MEDS: Latanoprost 0.005% Ophth Soln 2.5 ml Bottle EA EYE SCH (09:38)
[2021-10-09] MEDS: DorzolamidE/Timolol 2%/0.5% Ophth Soln 10 ml Bottle EA EYE SCH ×2 (09:38→20:37)
[2021-10-09] MEDS: Fish Oil 1,000 MG CAP PO SCH (09:39)
[2021-10-09] MEDS: Famotidine 20 MG TAB PO SCH (09:39)
[2021-10-09] MEDS: Aspirin 81 mg Enteric Coated Tablet PO SCH (09:39)
[2021-10-09] MEDS: Carbidopa/Levodopa 25-100 mg Tablet PO SCH ×4 (09:40→20:39)
[2021-10-09] MEDS: Gabapentin 300 MG CAP PO SCH ×2 (09:40→20:39)
[2021-10-09] MEDS: Morphine ER 15 MG TAB PO SCH ×3 (09:40→20:40)
[2021-10-09] MEDS: Allopurinol 100 MG TAB PO SCH (09:41)
[2021-10-09] MEDS: Losartan 25 MG TAB PO SCH (09:41)
[2021-10-09] MEDS: Trospium 20 MG TAB PO SCH ×2 (09:41→20:38)
[2021-10-09] MEDS: Heparin 5,000 UNITS/ML VIAL SC SCH ×3 (09:42→20:40)
[2021-10-09] MEDS: HumaLOG 300 UNITS/3 ML VIAL SC SCH ×3 (10:02→18:23)
[2021-10-09] MEDS: rOPINIRole HCl 0.25 MG TAB PO SCH (18:22)
[2021-10-09] MEDS: Zonisamide 100 MG CAP PO SCH (20:42)
[2021-10-10] MEDS: Sodium Chloride 0.9% 1,000 ML IV SCH ×2 (05:24→17:00)
[2021-10-10] MEDS: HYDROcodone/Acetaminophen 7.5/325 mg Tablet PO PRN (05:53)
[2021-10-10] MEDS: Levothyroxine Sodium 100 MCG TAB PO SCH (05:53)
[2021-10-10] MEDS: HumaLOG 300 UNITS/3 ML VIAL SC PRN (05:55)
[2021-10-10] MEDS ORDERED: Potassium Chloride 8 MEQ TAB PO PRN (06:19)
[2021-10-10] MEDS: HumaLOG 300 UNITS/3 ML VIAL SC SCH ×3 (08:00→18:22)
[2021-10-10] MEDS: Carbidopa/Levodopa 25-100 mg Tablet PO SCH ×4 (09:31→21:21)
[2021-10-10] MEDS: Fish Oil 1,000 MG CAP PO SCH (09:33)
[2021-10-10] MEDS: Famotidine 20 MG TAB PO SCH (09:34)
[2021-10-10] MEDS: Morphine ER 15 MG TAB PO SCH ×3 (09:34→21:22)
[2021-10-10] MEDS: Latanoprost 0.005% Ophth Soln 2.5 ml Bottle EA EYE SCH (09:36)
[2021-10-10] MEDS: Allopurinol 100 MG TAB PO SCH (09:38)
[2021-10-10] MEDS: Losartan 25 MG TAB PO SCH (09:39)
[2021-10-10] MEDS: Aspirin 81 mg Enteric Coated Tablet PO SCH (09:39)
[2021-10-10] MEDS: Trospium 20 MG TAB PO SCH ×2 (09:40→21:21)
[2021-10-10] MEDS: Gabapentin 300 MG CAP PO SCH ×2 (09:42→21:20)
[2021-10-10] MEDS: Heparin 5,000 UNITS/ML VIAL SC SCH ×3 (09:48→21:23)
[2021-10-10] MEDS: DorzolamidE/Timolol 2%/0.5% Ophth Soln 10 ml Bottle EA EYE SCH ×2 (09:54→21:24)
[2021-10-10] MEDS: rOPINIRole HCl 0.25 MG TAB PO SCH (18:20)
[2021-10-10] MEDS: Zonisamide 100 MG CAP PO SCH (21:21)
[2021-10-11] MEDS: HYDROcodone/Acetaminophen 7.5/325 mg Tablet PO PRN (02:59)
[2021-10-11] MEDS: HumaLOG 300 UNITS/3 ML VIAL SC PRN (05:51)
[2021-10-11] MEDS: Levothyroxine Sodium 100 MCG TAB PO SCH (05:55)
[2021-10-11] MEDS: Sodium Chloride 0.9% 1,000 ML IV SCH (06:38)
[2021-10-11] MEDS: DorzolamidE/Timolol 2%/0.5% Ophth Soln 10 ml Bottle EA EYE SCH ×2 (10:03→21:11)
[2021-10-11] MEDS: Latanoprost 0.005% Ophth Soln 2.5 ml Bottle EA EYE SCH (10:03)
[2021-10-11] MEDS: Aspirin 81 mg Enteric Coated Tablet PO SCH (10:04)
[2021-10-11] MEDS: Allopurinol 100 MG TAB PO SCH (10:04)
[2021-10-11] MEDS: Carbidopa/Levodopa 25-100 mg Tablet PO SCH ×4 (10:04→21:09)
[2021-10-11] MEDS: Fish Oil 1,000 MG CAP PO SCH (10:05)
[2021-10-11] MEDS: Famotidine 20 MG TAB PO SCH (10:05)
[2021-10-11] MEDS: Gabapentin 300 MG CAP PO SCH ×2 (10:05→21:07)
[2021-10-11] MEDS: Losartan 25 MG TAB PO SCH (10:05)
[2021-10-11] MEDS: Trospium 20 MG TAB PO SCH ×2 (10:06→21:10)
[2021-10-11] MEDS: Morphine ER 15 MG TAB PO SCH ×3 (10:06→21:08)
[2021-10-11] MEDS: Heparin 5,000 UNITS/ML VIAL SC SCH ×3 (10:10→21:11)
[2021-10-11] MEDS: HumaLOG 300 UNITS/3 ML VIAL SC SCH ×3 (11:38→17:58)
[2021-10-11 16:33] VITALS: BMI 34.5
[2021-10-11] MEDS: rOPINIRole HCl 0.25 MG TAB PO SCH (17:57)
[2021-10-11] MEDS: Zonisamide 100 MG CAP PO SCH (21:10)
[2021-10-12] MEDS: Sodium Chloride 0.9% 1,000 ML IV SCH ×2 (02:13→14:30)
[2021-10-12] MEDS: HYDROcodone/Acetaminophen 7.5/325 mg Tablet PO PRN (02:15)
[2021-10-12] MEDS: Levothyroxine Sodium 100 MCG TAB PO SCH (05:18)
[2021-10-12] MEDS: HumaLOG 300 UNITS/3 ML VIAL SC PRN (05:18)
[2021-10-12] MEDS: HumaLOG 300 UNITS/3 ML VIAL SC SCH ×3 (09:11→17:23)
[2021-10-12] MEDS: Famotidine 20 MG TAB PO SCH (09:12)
[2021-10-12] MEDS: Trospium 20 MG TAB PO SCH ×2 (09:12→20:58)
[2021-10-12] MEDS: Losartan 25 MG TAB PO SCH (09:12)
[2021-10-12] MEDS: Carbidopa/Levodopa 25-100 mg Tablet PO SCH ×4 (09:12→20:58)
[2021-10-12] MEDS: Gabapentin 300 MG CAP PO SCH ×2 (09:13→20:58)
[2021-10-12] MEDS: Fish Oil 1,000 MG CAP PO SCH (09:13)
[2021-10-12] MEDS: Aspirin 81 mg Enteric Coated Tablet PO SCH (09:14)
[2021-10-12] MEDS: Morphine ER 15 MG TAB PO SCH ×3 (09:14→20:59)
[2021-10-12] MEDS: Allopurinol 100 MG TAB PO SCH (09:15)
[2021-10-12] MEDS: Heparin 5,000 UNITS/ML VIAL SC SCH ×3 (09:15→21:00)
[2021-10-12] MEDS: Latanoprost 0.005% Ophth Soln 2.5 ml Bottle EA EYE SCH (09:16)
[2021-10-12] MEDS: DorzolamidE/Timolol 2%/0.5% Ophth Soln 10 ml Bottle EA EYE SCH ×2 (09:16→21:00)
[2021-10-12] MEDS: rOPINIRole HCl 0.25 MG TAB PO SCH (17:23)
[2021-10-12] MEDS: Zonisamide 100 MG CAP PO SCH (20:59)
[2021-10-13] MEDS: Sodium Chloride 0.9% 1,000 ML IV SCH ×2 (05:13→21:56)
[2021-10-13] MEDS: Levothyroxine Sodium 100 MCG TAB PO SCH (06:35)
[2021-10-13] MEDS: HYDROcodone/Acetaminophen 7.5/325 mg Tablet PO PRN (06:42)
[2021-10-13 07:42] LABS: Glucose 218 mg/dL (83-110)
[2021-10-13] MEDS: HumaLOG 300 UNITS/3 ML VIAL SC PRN ×3 (08:03→21:58)
[2021-10-13] MEDS: Allopurinol 100 MG TAB PO SCH (09:39)
[2021-10-13] MEDS: Fish Oil 1,000 MG CAP PO SCH (09:39)
[2021-10-13] MEDS: Famotidine 20 MG TAB PO SCH (09:40)
[2021-10-13] MEDS: Gabapentin 300 MG CAP PO SCH ×2 (09:40→21:14)
[2021-10-13] MEDS: Aspirin 81 mg Enteric Coated Tablet PO SCH (09:40)
[2021-10-13] MEDS: Carbidopa/Levodopa 25-100 mg Tablet PO SCH ×4 (09:40→21:13)
[2021-10-13] MEDS: Morphine ER 15 MG TAB PO SCH ×3 (09:41→21:55)
[2021-10-13] MEDS: Heparin 5,000 UNITS/ML VIAL SC SCH ×3 (09:41→21:18)
[2021-10-13] MEDS: HumaLOG 300 UNITS/3 ML VIAL SC SCH ×4 (09:41→18:01)
[2021-10-13] MEDS: Latanoprost 0.005% Ophth Soln 2.5 ml Bottle EA EYE SCH (09:42)
[2021-10-13] MEDS: DorzolamidE/Timolol 2%/0.5% Ophth Soln 10 ml Bottle EA EYE SCH ×2 (09:42→21:57)
[2021-10-13] MEDS: Trospium 20 MG TAB PO SCH ×2 (09:47→22:05)
[2021-10-13] MEDS: Losartan 25 MG TAB PO SCH (09:47)
[2021-10-13] MEDS: rOPINIRole HCl 0.25 MG TAB PO SCH (17:57)
[2021-10-13] MEDS: Zonisamide 100 MG CAP PO SCH (21:54)
[2021-10-14] MEDS: Levothyroxine Sodium 100 MCG TAB PO SCH (05:43)
[2021-10-14] MEDS: HumaLOG 300 UNITS/3 ML VIAL SC PRN (05:43)
[2021-10-14] MEDS: HYDROcodone/Acetaminophen 7.5/325 mg Tablet PO PRN ×3 (05:53→17:24)
[2021-10-14] MEDS: HumaLOG 300 UNITS/3 ML VIAL SC SCH ×3 (08:32→17:10)
[2021-10-14] MEDS: Heparin 5,000 UNITS/ML VIAL SC SCH ×2 (08:32→14:28)
[2021-10-14] MEDS: Gabapentin 300 MG CAP PO SCH (08:33)
[2021-10-14] MEDS: Famotidine 20 MG TAB PO SCH (08:33)
[2021-10-14] MEDS: Losartan 25 MG TAB PO SCH (08:33)
[2021-10-14] MEDS: Fish Oil 1,000 MG CAP PO SCH (08:33)
[2021-10-14] MEDS: Carbidopa/Levodopa 25-100 mg Tablet PO SCH ×3 (08:33→17:23)
[2021-10-14] MEDS: Allopurinol 100 MG TAB PO SCH (08:34)
[2021-10-14] MEDS: Aspirin 81 mg Enteric Coated Tablet PO SCH (08:34)
[2021-10-14] MEDS: DorzolamidE/Timolol 2%/0.5% Ophth Soln 10 ml Bottle EA EYE SCH (08:34)
[2021-10-14] MEDS: Trospium 20 MG TAB PO SCH (08:34)
[2021-10-14] MEDS: Latanoprost 0.005% Ophth Soln 2.5 ml Bottle EA EYE SCH (08:35)
[2021-10-14] MEDS: Morphine ER 15 MG TAB PO SCH ×2 (08:42→14:28)
[2021-10-14] MEDS: Sodium Chloride 0.9% 1,000 ML IV SCH (09:39)
[2021-10-14] MEDS: rOPINIRole HCl 0.25 MG TAB PO SCH (17:23)
[2021-10-14 19:24] VITALS: BP 137/73; TEMP 97.7
== END 2021-10-14 19:35 | DRG 483 ==
LOC: SURG A 10-07 05:29 → SURG B 10-07 11:33
PROVIDERS: ADMIT Orthopaedic Surgery; ATTEND Orthopaedic Surgery
PROC: 0RRK0JZ Replacement of Left Shoulder Joint with Synthetic Substitute, Open Approach (ICD-10-PCS; principal; 2021-10-07)
PROC: 0RPK0JZ Removal of Synthetic Substitute from Left Shoulder Joint, Open Approach (ICD-10-PCS; 2021-10-07)
PROC: 0LS40ZZ Reposition Left Upper Arm Tendon, Open Approach (ICD-10-PCS; 2021-10-07)
DX: M75.122 Complete rotator cuff tear or rupture of left shoulder, not specified as traumatic (principal); I13.0 Hypertensive heart and chronic kidney disease with heart failure and stage 1 through stage 4 chronic kidney disease, or unspecified chronic kidney disease; I50.32 Chronic diastolic (congestive) heart failure; E44.0 Moderate protein-calorie malnutrition; Z20.822 Contact with and (suspected) exposure to COVID-19; M25.712 Osteophyte, left shoulder; G20 Parkinson's disease; E11.22 Type 2 diabetes mellitus with diabetic chronic kidney disease; E78.5 Hyperlipidemia, unspecified; G25.81 Restless legs syndrome; K58.9 Irritable bowel syndrome, unspecified; N18.30 Chronic kidney disease, stage 3 unspecified; M54.9 Dorsalgia, unspecified; G89.29 Other chronic pain; M10.9 Gout, unspecified; E66.9 Obesity, unspecified; E11.69 Type 2 diabetes mellitus with other specified complication; H40.053 Ocular hypertension, bilateral; E03.9 Hypothyroidism, unspecified; Z88.0 Allergy status to penicillin; Z88.2 Allergy status to sulfonamides; Z88.8 Allergy status to other drugs, medicaments and biological substances; Z79.899 Other long term (current) drug therapy; Z98.1 Arthrodesis status; Z90.49 Acquired absence of other specified parts of digestive tract; Z90.09 Acquired absence of other part of head and neck; Z98.890 Other specified postprocedural states; Z79.890 Hormone replacement therapy; Z68.34 Body mass index [BMI] 34.0-34.9, adult
CPT/HCPCS: 36415; 36416; 80053; 80061; 82043; 82533; 82947; 83036; 83735; 84439; 84443; 85025; 85610; A4306; C1713; C1776; J1644; J1815; J1956; J2250; J2405; J2550; J2704; J2795; J3010; J3370; J3490; J7050; U0003; U0005